=== PATIENT | female | born 1960 | race Caucasian/White ===

== ENCOUNTER 2018-01-29 20:20 | Emergency (ER) | payer SELFPAY ==
[~2018-01-29] VITALS: Ht 149.9 cm; Wt 72.6 kg
[2018-01-29 20:24] VITALS: BP 136/74
--- NOTE | 2018-01-29 20:28 | NUR ---
PT AMBULATED TO BED 5 WITH VSS. Addendum: 01/29/18 at 2030 by MEDJ PT AMBULATED TO BED 5 WITH VSS.
--- NOTE | 2018-01-29 20:30 | NUR ---
PT PRESENTED ER WITH C/O PAIN TO THE EARS BILATERAL AND SORE THRAOT X 1 WEEK. PT STATES THAT SHE HAS A PRODUCTIVE COUGH AND A SAMPSON FROM COUGHING. PAIN LEVEL IS 9/10 AT THIS TIME . PT IS A/O X4. PT STATES SHE HAS ALLERGIES TO PENICILLIN AND NO MEDICAL HX. PT HAS BEEN TAKING ADVIL AND NYQUIL FOR PAIN AND RELIEVE. PT HAS HAD NO RELIEF FROM THE OTC MEDICATIONS. DENIES N/V/D; SKIN IS PINK/WARM/DRY; EVEN AND STEADY GAIT; LUNGS CLEAR BL; HR EVEN AND REGULAR; PT DENIES ANY FEVER, CP, SOB, OR COUGH AT THIS TIME; VSS; PATIENT POSITIONED FOR COMFORT; HOB ELEVATED; BEDRAILS UP X2; BED DOWN. ER MD MADE AWARE OF PT STATUS.
--- NOTE | 2018-01-29 20:39 | NUR ---
PT REPORT TO HENRI GOLDBERG
[2018-01-29] MEDS ORDERED: IBUPROFEN 400 MG TAB PO ONE (21:15)
[2018-01-30 00:30] VITALS: BP 130/71
--- NOTE | 2018-01-30 00:30 | NUR ---
Patient discharged with v/s stable. Written and verbal after care instructions given and explained. Patient alert, oriented and verbalized understanding of instructions. Ambulatory with steady gait. All questions addressed prior to discharge. ID band removed. Patient advised to follow up with PMD. Rx of IBUPROFEN, PREDNISONE, AND ZITHROMAX given. Patient educated on indication of medication including possible reaction and side effects. Opportunity to ask questions provided and answered.
== END 2018-01-30 00:30 | disposition home or self-care (01) ==
LOC: MED 20:20
DX: J02.8 Acute pharyngitis due to other specified organisms (principal); B97.89 Other viral agents as the cause of diseases classified elsewhere; Z88.0 Allergy status to penicillin
CPT/HCPCS: 87081; 99284

== ENCOUNTER 2018-09-02 21:20 | Emergency (ER) | payer OTHER ==
[~2018-09-02] VITALS: Ht 160 cm; Wt 87.1 kg
[2018-09-02 21:25] VITALS: BP 171/104
--- NOTE | 2018-09-02 21:52 | NUR ---
PT WAS TAKEN TO BED 05 BY WHEELCHAIR.
[2018-09-02] MEDS ORDERED: LORazepam 2 MG/ML VIAL IVP ONE (22:05)
[2018-09-02] MEDS ORDERED: NACL 0.9% 1,000 ML IV ONE (22:05)
[2018-09-02] MEDS ORDERED: diphenhydrAMINE 50 MG/ML VIAL IVP ONE (22:05)
--- NOTE | 2018-09-02 22:05 | NUR ---
EKG PERFORMED AT BEDSIDE
--- NOTE | 2018-09-02 22:06 | NUR ---
58 Y/O BIB FAMILY WITH C/O DIZZNESS X1 HOUR PRIOR TO ARRIVAL. +NAUSEA/ VOMITTING. PT HYPERTENSIVE AND TACHYCARDIC. EXPERIENCING DRY MOUTH. DENIES CHANGES IN VISION. PER PT "TOLD I HAD HIGH BLOOD PRESSURE A LONG TIME AGO. BUT I DONT TAKE ANY MEDICINE." FAMILY AT BEDSIDE. ERMD MADE AWARE. WILL CONTINUE TO MONITOR.
[2018-09-02] MEDS ORDERED: ONDANSETRON 4 MG/2 ML VIAL IVP ONE (22:35)
--- NOTE | 2018-09-02 23:00 | NUR ---
PT AWAKE. VSS. FAMILY AT BEDSIDE. PT STILL C/O SOME DIZZINESS. DR. BAL AWARE.
[2018-09-03 00:50] VITALS: BP 103/56
--- NOTE | 2018-09-03 00:50 | NUR ---
Patient discharged with v/s stable. Written and verbal after care instructions given and explained. Patient alert, oriented and verbalized understanding of instructions. Wheel Chair Assisted with by caregiver. All questions addressed prior to discharge. ID band removed. Patient advised to follow up with PMD. Rx of Antivert and benadryl given. Patient educated on indication of medication including possible reaction and side effects. Opportunity to ask questions provided and answered.
== END 2018-09-03 00:50 | disposition home or self-care (01) ==
LOC: MED 21:20
DX: R42 Dizziness and giddiness (principal); B34.9 Viral infection, unspecified; Z88.0 Allergy status to penicillin
CPT/HCPCS: 81002; 93005; 96361; 96374; 96375; 99283; J1200; J2060; J2405; J7030

== ENCOUNTER 2018-10-11 16:00 | Emergency (ER) | payer OTHER ==
[~2018-10-11] VITALS: Ht 152.4 cm; Wt 86.2 kg
[2018-10-11 16:00] VITALS: BP 140/81
--- NOTE | 2018-10-11 16:02 | NUR ---
PT TAKEN IN WHEELCHAIR TO ER BED 03
--- NOTE | 2018-10-11 16:15 | NUR ---
PT PRESENTS TO ER WITH C/O RT LEG PAIN. PT DENIES INJURY/TRAUMA. PERIPHERAL PULSES PRESENT; CAP REFILL <3 SECS. SLIGHT SWELLING NOTED TO RT KNEE. PT VERBALIZED BEING UNABLE TO BEAR WEIGHT TO AFFECTED EXTREMITY. STATES PAIN IS 10/10 AT THIS TIME. DENIES PREVIOUS MEDICAL HX. VSS. ASSISTED TO GOWN; CONNECTED TO MONITOR. BED LOCKED AND IN LOWEST POSITION. ERMD TO EVALUATE PT.
[2018-10-11] MEDS ORDERED: KETOROLAC 60 MG/2 ML VIAL IM ONE (16:55)
[2018-10-11] MEDS ORDERED: DEXAMETHASONE 10 MG/ML VIAL IM ONE (16:55)
[2018-10-11] MEDS ORDERED: MORPHINE SULFATE 4 MG/ML SYR IM ONE (16:55)
[2018-10-11 18:33] VITALS: BP 132/64
--- NOTE | 2018-10-11 18:33 | NUR ---
Patient discharged with v/s stable. Written and verbal after care instructions given and explained. Patient alert, oriented and verbalized understanding of instructions. Wheel Chair Assisted to car. All questions addressed prior to discharge. ID band removed. Patient advised to follow up with PMD. Rx of voltaren tab given. Patient educated on indication of medication including possible reaction and side effects. Opportunity to ask questions provided and answered.
== END 2018-10-11 18:33 | disposition home or self-care (01) ==
LOC: MED 16:00
DX: M25.551 Pain in right hip (principal); M25.561 Pain in right knee; M25.571 Pain in right ankle and joints of right foot; Z88.0 Allergy status to penicillin
CPT/HCPCS: 73552; 73590; 96372; 99283; J1100; J1885; J2270; Q0092

== ENCOUNTER 2019-05-12 00:31 | Emergency (ER) | payer OTHER ==
[~2019-05-12] VITALS: Ht 147.3 cm; Wt 86.2 kg
[2019-05-12 00:50] VITALS: BP 122/90
[2019-05-12] MEDS ORDERED: ACETAMINOPHEN EXTRA STRENGTH 500 MG TAB PO ONE (01:00)
[2019-05-12] MEDS ORDERED: IBUPROFEN 600 MG TAB PO ONE (01:00)
--- NOTE | 2019-05-12 01:15 | NUR ---
PT C/O FLU LIKE SYMPTOMS X1 WEEK. PT STATES CHEST MUSCLES AND ABDOMEN HURT FROM COUGHING. PT COUGHING UP CLEAR FLEGM. PT STATES TAKING TYLENOL AND MOTRIN BUT STILL HAVING FEVERS. PT EDUCATED ON NOT USING BLANKETS WHEN HAVING A FEVER. DENIES N/V/D; SKIN IS PINK/WARM/DRY; AAOX4 WITH EVEN AND STEADY GAIT; LUNGS CLEAR BL; HR EVEN AND REGULAR; PATIENT STATES PAIN OF 9/10 AT THIS TIME; VSS; PATIENT POSITIONED FOR COMFORT; HOB ELEVATED; BEDRAILS UP X1; BED DOWN. ER MD MADE AWARE OF PT STATUS.
--- NOTE | 2019-05-12 03:10 | NUR ---
NO CHANGES FROM PREVIOUS ASSESSMENT. WAITING FOR X-RAY CHEST. WILL CONTINUE TO MONITOR.
--- NOTE | 2019-05-12 03:45 | NUR ---
Patient discharged with v/s stable. Written and verbal after care instructions given and explained. Patient alert, oriented and verbalized understanding of instructions. Ambulatory with steady gait. All questions addressed prior to discharge. ID band removed. Patient advised to follow up with PMD. Rx of PROMETHAZINE, LASIX AND POTASSIUM given. Patient educated on indication of medication including possible reaction and side effects. Opportunity to ask questions provided and answered.
[2019-05-12 04:07] VITALS: BP 136/85
== END 2019-05-12 04:07 | disposition home or self-care (01) ==
LOC: MED 00:31
DX: J06.9 Acute upper respiratory infection, unspecified (principal); R09.89 Other specified symptoms and signs involving the circulatory and respiratory systems; R03.0 Elevated blood-pressure reading, without diagnosis of hypertension; Z88.0 Allergy status to penicillin
CPT/HCPCS: 71045; 81002; 99283; Q0092

== ENCOUNTER 2020-08-10 08:12 | Emergency (ER) | payer OTHER ==
[~2020-08-10] VITALS: Ht 157.5 cm; Wt 74.8 kg
[2020-08-10 08:17] VITALS: BP 104/68
--- NOTE | 2020-08-10 08:24 | NUR ---
60 YEAR OLD FEMALE COMPLAINS OF PAIN TO LOWER EXTREMITIES THAT HAVE GOTTEN WORSE THE PAST COUPLE OF DAYS. PT STATES THE MEDICATION SHE TAKES ORDERED BY HER PCP DOES NOT ALLEVIATE THE PAIN. PT AOX4, BREATHING EVEN AND UNLABORED, SKIN WARM AND DRY. BED IN LOWEST POSITION, LOCKED, BED RAIL UPX1. PMH - DENIES ALLERGIES - PCN
--- NOTE | 2020-08-10 08:25 | NUR ---
PT TAKEN TO BED 5
--- NOTE | 2020-08-10 08:59 | NUR ---
Dr. Pacheco examining patient.
[2020-08-10] MEDS ORDERED: KETOROLAC 30 MG/ML VIAL IM ONE (09:10)
--- NOTE | 2020-08-10 09:22 | NUR ---
X-Ray at bedside.
--- NOTE | 2020-08-10 09:24 | NUR ---
[facility]CO SWAB SENT TO LAB
[2020-08-10] MEDS ORDERED: ACET-10509 PO (10:30)
[2020-08-10 10:49] VITALS: BP 104/68
--- NOTE | 2020-08-10 10:50 | NUR ---
Patient discharged with v/s stable. Written and verbal after care instructions given and explained. Patient alert, oriented and verbalized understanding of instructions. Ambulatory with steady gait. All questions addressed prior to discharge. ID band removed. Patient advised to follow up with PMD. Rx of TYLENOL EXTRA STRENGTH given. Patient educated on indication of medication including possible reaction and side effects. Opportunity to ask questions provided and answered.
== END 2020-08-10 10:50 | disposition home or self-care (01) ==
LOC: MED 08:12
DX: U07.1 COVID-19 (principal); Z88.0 Allergy status to penicillin
CPT/HCPCS: 71045; 87426; 96372; 99284; J1885

== ENCOUNTER 2020-08-14 22:55 | Inpatient (IN) | payer OTHER, SELFPAY ==
[~2020-08-14] VITALS: Ht 157.5 cm; Wt 82.1 kg
[~2020-08-14 22:55] MED LIST: ACET-10509 PO
[2020-08-14 23:25] VITALS: BP 128/88
--- NOTE | 2020-08-14 23:28 | NUR ---
SENT TO HER [facility], AND TO CALL FOR BED.
[2020-08-14] MEDS ORDERED: ACETAMINOPHEN EXTRA STRENGTH 500 MG TAB PO ONE (23:55)
--- NOTE | 2020-08-14 23:57 | NUR ---
AMBULATED TO ER BED 10
--- NOTE | 2020-08-15 00:52 | NUR ---
received pt from [facility] and placed to bed 10. pt currently a/o x 4 gcs 15. ambulatory with steady gait. able to move all extremities freely. placed in bed for comfort sitting in high fowlers position. 60 year old female coming from home with hx arthritis coming in for c/o dizziness, headache, and uncontrolled fever since monday. pt was tested for covid here at [facility] and tested positive for covid on monday. ever since then pt states that temp has been climbingup to as high as 104.8F and 1g of tylenol would only decrease temp to 100.1. currently pt denies any sob. has productive cough.
--- NOTE | 2020-08-15 01:50 | NUR ---
Dr. Newsome with pt for MSE
--- NOTE | 2020-08-15 02:00 | NUR ---
placed in a gown and in cardiac monitoring. shows sinus tach.
[2020-08-15] MEDS ORDERED: NACL 0.9% 1,000 ML IV ONE ×2 (02:05→03:15)
[2020-08-15] MEDS ORDERED: AZITHROMYCIN 500 MG in DEXTROSE 5% 250 ML IV ONE (02:35)
[2020-08-15 02:36] LABS: HEMATOCRIT 36.4 % (36-48); HEMOGLOBIN 12.4 g/dL (12.0-16.0); MEAN CORPUSCULAR HEMOGLOBIN 30 pg (27-31); MEAN CORPUSCULAR HGB CONC 34 g/dL (33-37); MEAN CORPUSCULAR VOLUME 88.3 fL (80-94); PLATELET COUNT (AUTO) 112 K/uL (140-450); RED BLOOD CELL COUNT(AUTO) 4.12 MIL/uL (4.20-5.40); RED CELL DISTRIBUTION WIDTH 13.4 % (11.6-13.7); WHITE BLOOD COUNT (AUTO) 9.2 K/uL (4.8-10.8)
[2020-08-15] MEDS ORDERED: cefTRIAXone 1,000 MG VIAL ONE (02:44)
[2020-08-15] MEDS ORDERED: AZITHROMYCIN 500 MG INJ VIAL IV ONE (02:44)
[2020-08-15 02:49] LABS: ALBUMIN 2.9 g/dL (3.4-5.0); ANION GAP 12.3 (8-16); CARBON DIOXIDE 23.4 mmol/L (21-32); CREATININE 0.8 mg/dL (0.6-1.3); POTASSIUM 3.7 mmol/L (3.5-5.1); TOTAL BILIRUBIN 0.5 mg/dL (0.0-1.0)
[2020-08-15 02:51] LABS: LYMPHOCYTES % (MANUAL) 5 % (20-46); MONOCYTES % (MANUAL) 1 % (5-12)
--- NOTE | 2020-08-15 03:00 | NUR ---
blood cultures collected pre-abx therapy and sent to lab.
[2020-08-15] MEDS ORDERED: DEXAMETHASONE 10 MG/ML VIAL IVP ONE (03:05)
--- NOTE | 2020-08-15 03:06 | NUR ---
Juliano EMT at bedside for EKG.
[2020-08-15] MEDS ORDERED: ACETAMINOPHEN 325 MG TAB PO ONE (03:15)
--- NOTE | 2020-08-15 03:16 | NUR ---
covid swab collected and sent to lab.
[2020-08-15 03:38] LABS: D-DIMER 596 ng/ml (0-400)
--- NOTE | 2020-08-15 03:55 | NUR ---
provided pt with food per request.
[2020-08-15] MEDS ORDERED: ACETAMINOPHEN EXTRA STRENGTH 500 MG TAB PO PRN (04:30)
[2020-08-15] MEDS ORDERED: ONDANSETRON 4 MG/2 ML VIAL IM SCH (04:30)
--- NOTE | 2020-08-15 06:40 | NUR ---
PATIENT HAS ORAL TEMP OF 101.4. CALLED AFTER HOURS PHARMACY TO VERIFY PRN MEDICATIONS. PER PHARMACIST UNABLE TO VERIFY MEDICATIONS AT THIS TIME. TYLENOL 650MG GIVEN PO. PATIENT REMAINS ON CARIDAC MONITOR VSS. BED IS LOCKED AND IN LOWEST POSITION.
[2020-08-15] MEDS ORDERED: ACETAMINOPHEN 325 MG TAB ONE (06:46)
--- NOTE | 2020-08-15 07:19 | NUR ---
REPORT GIVEN TO TREVOR GOLDBERG, TRANSFER OF CARE.
--- NOTE | 2020-08-15 07:33 | NUR ---
PATIENT RESTING, PLACED IN A POSITION OF COMFORT ON BEDSIDE ACTIMIZE ARCHITECT.
--- NOTE | 2020-08-15 07:53 | NUR ---
Rechecked oral temp, 99.8
--- NOTE | 2020-08-15 08:06 | NUR ---
RECEIVED REPORT FROM ER NURSE TREVOR PATIENT IS AAOX4 THAI SPEAKING ONLY ON REGULAR DIET, SKIN INTACT, AMBULATORY AND ON ROOM AIR.IV INTACT ON RIGHT FA, NO IV FLUIDS RUNNING, ROCEPHIN AND SODUIM CHLORIDE BOLUS GIVEN , TEMP AT 00.8.
--- NOTE | 2020-08-15 08:11 | NUR ---
Patient will be admitted to care of Dr. Marvin. Admited to TELE. Will go to room 114. Belongings list completed. Report to Jessy GOLDBERG.
--- NOTE | 2020-08-15 08:16 | NUR ---
PATIENT HAS BEEN SCREENED AND CATEGORIZED MODERATE NUTRITION RISK. PATIENT WILL BE SEEN WITHIN 3-5 DAYS OF ADMISSION. 08/17/20 08/19/[address]
[2020-08-15 08:22] VITALS: BP 100/50
--- NOTE | 2020-08-15 08:22 | NUR ---
PATIENT BROUGHT TO THE UNIT VIA GURNEY ASSISTED TO BED, ORIENTED TO ROOM CHECK VITAL SIGNS BP 100/50 DE 77 RR: 18 TEMP 98.1 OXYGEN SATURATION 92% AT 2LPM OXYGEN NC. SAFETY MEASURES IN PLACE AND CALL LIGHT WITHIN REACH. WILL CONTINUE TO MONITOR.
[2020-08-15] MEDS ORDERED: ACETAMINOPHEN 325 MG TAB PO PRN (08:45)
[2020-08-15] MEDS ORDERED: remdesivir COMMUNICATION ORDER 1 EA MISC MC SCH (09:00)
[2020-08-15] MEDS ORDERED: AZITHROMYCIN 250 MG TAB PO SCH ×2 (09:00)
[2020-08-15] MEDS: APIXABAN 2.5 MG TAB PO SCH ×2 (09:18→20:21)
--- NOTE | 2020-08-15 09:18 | NUR ---
MEDICATION DUE GIVEN PT IS COUGHING NO DISTRESS NOTED.
--- NOTE | 2020-08-15 09:30 | NUR ---
MRSA NARES DONE AND SENT TO LAB.
[2020-08-15] MEDS ORDERED: remdesivir CLINICAL MONITORING 1 EA MISC MC PRN (10:05)
[2020-08-15] MEDS ORDERED: REMDESIVIR. 200 MG in NACL 0.9% 100 ML IV SCH (11:00)
[2020-08-15 12:00] VITALS: BP 116/65
[2020-08-15] MEDS ORDERED: IBUPROFEN 400 MG TAB PO SCH (12:00)
--- NOTE | 2020-08-15 12:00 | NUR ---
MEDICATION DUE GIVEN PAT COMPLAINS OF MILD HEADACHE. PAIN MEDICATION GIVEN.
[2020-08-15] MEDS: DEXAMETHASONE 10 MG/ML VIAL IVP SCH (12:03)
[2020-08-15 15:38] LABS: APPEARANCE,URINE CLEAR (CLEAR); BILIRUBIN,URINE NEGATIVE (NEGATIVE); BLOOD, URINE NEGATIVE (NEGATIVE); COLOR,URINE YELLOW (YELLOW); LEUKOCYTE ESTERASE ,URINE NEGATIVE (NEGATIVE); NITRITE, URINE NEGATIVE (NEGATIVE); UGLUCOSE NEGATIVE (NEGATIVE)
[2020-08-15 16:00] VITALS: BP 106/59
[2020-08-15] MEDS: IBUPROFEN 400 MG TAB PO SCH (16:34)
--- NOTE | 2020-08-15 16:40 | NUR ---
MEDICATION DUE GIVEN PATIENT IS RESTING NO COMPLAINS OF PAIN AND HEADACHE.
--- NOTE | 2020-08-15 17:42 | NUR ---
MADE ROUNDS PT IS RESTING NO DISTRESS NOTED ON 2LPM OXYGEN SATURATION AT 92%.
--- NOTE | 2020-08-15 19:11 | NUR ---
RECEIVED PATIENT FROM AM SHIFT NURSE FOR CONTINUITY OF CARE. ALERT AND ABLE TO MAKE NEEDS KNOWN. RESPIRATIONS EVEN, UNLABORED. SLIGHTLY TACHYPNEIC AND LABORED DURING ACTIVITY. CONTINUES ON O2 2L VIA NC, O2SAT 90%. NO S/S RESPIRATORY DISTRESS. S1/S2 AUSCULTATED. TELE MONITORING. SKIN WARM, DRY. SALINE LOCK TO RIGHT FOREARM 18G PATENT/INTACT. NO C/O PAIN. NO S/S ACUTE DISTRESS. ABDOMEN SOFT, NONTENDER, NONDISTENDED. BOWEL SOUNDS ACTIVE X4 QUADRANTS. PATIENT IS CONTINENT OF B/B. PLAN OF CARE DISCUSSED. CALL LIGHT WITHIN REACH AT ALL TIMES. ISOLATION PRECAUTIONS OBSERVED.
--- NOTE | 2020-08-15 19:11 | NUR ---
ENDORSED TO NIGHT NURSE FOR CONTINUITY OF CARE. PT IS STABLE.
[2020-08-15 20:00] VITALS: BP 105/61
--- NOTE | 2020-08-15 21:00 | NUR ---
DUE MEDS GIVEN. PATIENT IS RESTING COMFORTABLY IN BED. NO S/S RESPIRATORY DISTRESS. NO S/S ACUTE DISTRESS. NO C/O PAIN. CALL LIGHT WITHIN REACH AT ALL TIMES. ISOLATION PRECAUTIONS OBSERVED.
--- NOTE | 2020-08-15 23:00 | NUR ---
PATIENT IS ASLEEP. NO S/S RESPIRATORY DISTRESS. NO S/S ACUTE DISTRESS. CALL LIGHT WITHIN REACH AT ALL TIMES. ISOLATION PRECAUTIONS OBSERVED.
[2020-08-16] VITALS: BP 122/66
--- NOTE | 2020-08-16 01:30 | NUR ---
MADE ROUNDS. PATIENT IS ASLEEP. NO S/S ACUTE DISTRESS. CALL LIGHT WITHIN REACH. ISOLATION PRECAUTIONS OBSERVED.
--- NOTE | 2020-08-16 01:39 | NUR ---
PT RESTING/SLEEPING COMFORTABLY IN BED ON 2LNC NO DISTRESS NOTED SPO2 91% WILL CONTINUE TO MONITOR
--- NOTE | 2020-08-16 03:30 | NUR ---
PATIENT IS RESTING COMFORTABLY IN BED. O2 SAT 88%. INCREASED O2 TO 4L VIA NC. O2SAT NOW 90%.
[2020-08-16 04:00] VITALS: BP 144/75
--- NOTE | 2020-08-16 05:00 | NUR ---
PATIENT ENCOURAGED TO PRONE TO BETTER FACILITATE GAS EXCHANGE. CONTINUES ON O2 4L VIA NC. NO S/S RESPIRATORY DISTRESS. O2 SAT 92%. CALL LIGHT WITHIN REACH. ISOLATION PRECAUTIONS OBSERVED.
--- NOTE | 2020-08-16 05:02 | NUR ---
PT SLEEPING IN PRONE POSITION ON 4LNC W/ NO DISTRESS NOTED AT THIS TIME CURRENT SPO2 92% WILL CONTINUE TO MONITOR
[2020-08-16 06:54] LABS: HEMATOCRIT 36.3 % (36-48); HEMOGLOBIN 12.2 g/dL (12.0-16.0); MEAN CORPUSCULAR HEMOGLOBIN 30 pg (27-31); MEAN CORPUSCULAR HGB CONC 34 g/dL (33-37); MEAN CORPUSCULAR VOLUME 89.4 fL (80-94); PLATELET COUNT (AUTO) 152 K/uL (140-450); RED BLOOD CELL COUNT(AUTO) 4.06 MIL/uL (4.20-5.40); RED CELL DISTRIBUTION WIDTH 13.5 % (11.6-13.7); WHITE BLOOD COUNT (AUTO) 14.5 K/uL (4.8-10.8)
[2020-08-16 07:05] LABS: ALBUMIN 2.6 g/dL (3.4-5.0); ANION GAP 15.4 (8-16); CREATININE 0.7 mg/dL (0.6-1.3); POTASSIUM 3.4 mmol/L (3.5-5.1); TOTAL BILIRUBIN 0.3 mg/dL (0.0-1.0)
--- NOTE | 2020-08-16 07:18 | NUR ---
RECEIVED PT FROM DESKTOP SUPPORT MANAGER NURSE, CORWIN, PT IS AWAKE AND IS LYING PRONE ON THE BED SATURATION IS AT 89%, IV LINE NOTED ON THE RFA G. 18 ON SALINE LOCK, PT IS ON 6L O2 NC, SAFETY PRECAUTION IN PLACE, NO SIGN OF DISTRESS NOTED AND WILL CONTINUE TO BE MONITORED.
[2020-08-16 07:37] LABS: BASOPHILS % (MANUAL) 0 % (0-2); EOSINOPHILS % (MANUAL) 0 % (0-4); LYMPHOCYTES % (MANUAL) 6 % (20-46); MONOCYTES % (MANUAL) 3 % (5-12)
[2020-08-16 07:38] LABS: PROTHROMBIN TIME 11.2 secs (10.8-13.4)
[2020-08-16 08:00] VITALS: BP 126/64
[2020-08-16] MEDS: PANTOPRAZOLE 40 MG TABEC PO SCH (08:13)
--- NOTE | 2020-08-16 08:15 | NUR ---
RT, CELSO CAME TO THE PT'S ROOM AND CHANGE THE PT'S O2 TO A HUMIDIFIED OXYGEN AT 8L NASAL CANNULA NOW, PT IS SATURATING AT 96% NOW, SEATED UPRIGHT AND IS CALM. NO SIGN OF DISTRESS NOTED. WILL CONTINUE TO MONITOR,PT.
[2020-08-16] MEDS: IBUPROFEN 400 MG TAB PO SCH ×3 (08:27→16:32)
[2020-08-16] MEDS: APIXABAN 2.5 MG TAB PO SCH ×2 (08:27→20:04)
--- NOTE | 2020-08-16 08:27 | NUR ---
PT WAS GIVEN THE SCHEDULED AM MEDICATION VIA ORAL, TOLERATED AND NO SIGN OF DIFFICULTY SWALLOWING NOTED, ROOM WAS FREED FROM CLUTTER, SPOKE TO PT'S DAUGHTER, LINH AND TOLD ABOUT THE PLAN OF CARE, PT WAS SERVED BREAKFAST AND O2 SATURATION IS AT 90%. NO SIGN OF DISTRESS NOTED AND WILL CONTINUE TO MONITOR PT.
[2020-08-16] MEDS ORDERED: POTASSIUM CHLORIDE 10 MEQ TABER PO SCH (09:30)
[2020-08-16] MEDS: DEXAMETHASONE 10 MG/ML VIAL IVP SCH (11:55)
[2020-08-16] MEDS: REMDESIVIR. 100 MG in NACL 0.9% 100 ML IV SCH (11:56)
--- NOTE | 2020-08-16 11:56 | NUR ---
PT WAS GIVEN THE SCHEDULED MEDICATIONS VIA IVPB AND ORAL, TOLERATED AND WILL CONTINUE TO MONITOR PT.
[2020-08-16 12:00] VITALS: BP 107/65
--- NOTE | 2020-08-16 13:20 | NUR ---
PT IS RESTING AND SATURATING AT 95%
[2020-08-16 16:00] VITALS: BP 103/69
--- NOTE | 2020-08-16 16:32 | NUR ---
PT WAS GIVEN THE SCHEDULED AM MEDICATION, ASSISTED WITH NEEDS, PT IS SATURATING AT 96% ON O2 8L ON HUMIDIFIED NASAL CANNULA
--- NOTE | 2020-08-16 19:19 | NUR ---
ENDORSED PT TO WATER REGISTRAR NURSESILVINO FOR CONTINUITY OF CARE
--- NOTE | 2020-08-16 19:20 | NUR ---
RECEIVED REPORT FROM DAY YUSUF HALLMAN. PT AOX4 ON 8L HUMIDIFIED N/C, O2 SAT 95%. NO S/S RESPIRATORY DISTRESS. NO C/O PAIN AT THIS TIME. IV SITE R HAND 20G PATENT INTACT, S.L. SAFETY MEASURES IN PLACE. CALL LIGHT WITHIN REACH. WILL CONTINUE TO MONITOR
[2020-08-16] MEDS ORDERED: IBUPROFEN 400 MG TAB PO PRN (19:30)
--- NOTE | 2020-08-16 19:30 | NUR ---
PT ON 8LNC SPO2 95% 75HR PT DENIES SOB AT THIS TIME W/ NO DISTRESS AT THIS TIME. PT SITTING UP IN BED SPEAKING W/ FAMILY ON PHONE. WILL CONTINUE TO MONITOR
[2020-08-16 20:00] VITALS: BP 111/64
--- NOTE | 2020-08-16 20:10 | NUR ---
ADMINISTERED SCHEDULED MEDICATION. EDUCATION PROVIDED. 8L N/C IN PLACE, O2 SAT 97%. DENIES PAIN, DENIES SOB, DENIES DISCOMFORT. NO DISTRESS NOTED. BED IN LOW POSITION. CALL LIGHT WITHIN REACH. WILL CONTINUE TO MONITOR
--- NOTE | 2020-08-16 22:15 | NUR ---
PATIENT ASLEEP IN BED. RESPIRATIONS EVEN UNLABORED. 8L N/C IN PLACE, O2 SAT 94%. NO DISTRESS NOTED. CALL LIGHT WITHIN REACH. WILL CONTINUE TO MONITOR
--- NOTE | 2020-08-16 22:39 | NUR ---
PT SLEEPING COMFORTABLY AT THIS TIME W/ NO DISTRESS CURRENT SPO2 96% WILL CONTINUE TO MONITOR
[2020-08-17] VITALS: BP 121/70
--- NOTE | 2020-08-17 00:15 | NUR ---
PATIENT ASLEEP IN BED. RESPIRATIONS EVEN UNLABORED. 8L N/C IN PLACE, O2 SAT 96%. NO DISTRESS NOTED. CALL LIGHT WITHIN REACH. WILL CONTINUE TO MONITOR
--- NOTE | 2020-08-17 02:01 | NUR ---
PATIENT SLEEPING IN BED COMFORTABLY. 8L N/C IN PLACE, O2 SAT 93%. NO S/S RESPIRATORY DISTRESS. CALL LIGHT WITHIN REACH. WILL CONTINUE TO MONITOR
[2020-08-17 04:00] VITALS: BP 111/62
--- NOTE | 2020-08-17 04:02 | NUR ---
PATIENT SLEEPING IN BED. 8L N/C IN PLACE, O2 SAT 90%. RESPIRATIONS EVEN UNLABORED. NO S/S RESPIRATORY DISTRESS. CALL LIGHT WITHIN REACH. WILL CONTINUE TO MONITOR
--- NOTE | 2020-08-17 06:04 | NUR ---
PATIENT SLEEPING IN BED. 8L N/C IN PLACE, O2 SAT 93%. RESPIRATIONS EVEN UNLABORED. NO S/S RESPIRATORY DISTRESS. CALL LIGHT WITHIN REACH. WILL CONTINUE TO MONITOR
[2020-08-17 06:37] LABS: ALBUMIN 2.4 g/dL (3.4-5.0); ANION GAP 12.8 (8-16); CARBON DIOXIDE 26.3 mmol/L (21-32); CREATININE 0.8 mg/dL (0.6-1.3); POTASSIUM 4.1 mmol/L (3.5-5.1); TOTAL BILIRUBIN 0.3 mg/dL (0.0-1.0)
[2020-08-17 06:40] LABS: BASOPHILS % (AUTO) 0.1 % (0.0-2.0); HEMATOCRIT 35.8 % (36-48); HEMOGLOBIN 11.9 g/dL (12.0-16.0); LYMPHOCYTES # (AUTO) 0.5 K/uL (2.5-16.5); LYMPHOCYTES % (AUTO) 3.2 % (20.5-51.1); MEAN CORPUSCULAR HEMOGLOBIN 30 pg (27-31); MEAN CORPUSCULAR HGB CONC 33 g/dL (33-37); MEAN CORPUSCULAR VOLUME 89.7 fL (80-94); MONOCYTES # (AUTO) 0.8 K/uL (0.8-1.0); MONOCYTES % (AUTO) 5.4 % (1.7-9.3); NEUTROPHILS % (AUTO) 91.3 % (42.2-75.2); PLATELET COUNT (AUTO) 179 K/uL (140-450); RED CELL DISTRIBUTION WIDTH 13.6 % (11.6-13.7); WHITE BLOOD COUNT (AUTO) 14.2 K/uL (4.8-10.8)
[2020-08-17] MEDS ORDERED: IBUPROFEN 400 MG TAB PO PRN (07:22)
--- NOTE | 2020-08-17 07:24 | NUR ---
ENDORSED PATIENT TO DAY RN FOR CONTINUITY OF CARE. PATIENT IS IN STABLE CONDITION
--- NOTE | 2020-08-17 07:25 | NUR ---
RECEIVED REPORT FROM SENIOR LEAD PROJECT MANAGER RN FOR CONTINUITY OF CARE. PATIENT RESTING IN BED IN SEMI RESENDEZ'S POSITION. O2 SAT 84-86% ON 8L OXYGEN VIA NC WITH HUMIDIFIER, HOWEVER, NO SIGNS OF LABORED BREATHING NOTED. PER SENIOR LEAD PROJECT MANAGER RN, PATIENT DESAT WHEN SHE WALK TO THE RESTROOM, AND TAKES ABOUT 20-30 MINS GO BACK TO 90%. BEDSIDE COMMODE AT BEDSIDE, HOWEVER, PATIENT NON COMPLIANCE, INSIST TO WALK TO THE RESTROOM, PER SENIOR LEAD PROJECT MANAGER RN. WILL INFORM RT TO CHECK THE PATIENT. IV SITE TO RIGHT HAND 20G SALINE LOCK. SKIN INTACT. SAFETY MEASURES IN PLACE, WILL CONTINUE TO MONITOR.
--- NOTE | 2020-08-17 07:45 | NUR ---
PATIENT ON NON REBREATHER, O2 SAT WENT UP TO 92-94%, PER RT.
[2020-08-17 08:00] VITALS: BP 111/64
[2020-08-17] MEDS: PANTOPRAZOLE 40 MG TABEC PO SCH (09:38)
[2020-08-17] MEDS: APIXABAN 2.5 MG TAB PO SCH ×2 (09:38→21:20)
--- NOTE | 2020-08-17 09:38 | NUR ---
SCHEDULED MEDICATIONS GIVEN. ENCOURAGED PATIENT TO REST IN PRONE POSITION. O2 SAT 89-90% WITH 8L NRB. PATIENT HAS OCCASIONAL PRODUCTIVE COUGH. ENCOURAGED PATIENT TO TAKE SOME DEEP BREATHE IF TOLERATED. VERBALIZED UNDERSTANDING WILL CONTINUE TO MONITOR.
[2020-08-17] MEDS: DEXAMETHASONE 10 MG/ML VIAL IVP SCH (11:05)
[2020-08-17] MEDS: REMDESIVIR. 100 MG in NACL 0.9% 100 ML IV SCH (11:05)
[2020-08-17 12:00] VITALS: BP 123/73
--- NOTE | 2020-08-17 14:28 | NUR ---
IV ON THE RIGHT HAND DRESSING NON INTACT. Addendum: 08/17/20 at 1430 by Brent Cruz RN REMOVED IV ON THE HAND HAND PER PATIENT'S REQUESTS. STARTED NEW IV ON THE LEFT FOREARM 22G WITH FIRST ATTEMPT, WITH GOOD BLOOD RETURN AND EASILY TO FLUSH WITH NS. PATIENT TOLERATED WELL. ALL COMFORT MEASURES MET. WILL CONTINUE TO MONITOR.
[2020-08-17 16:00] VITALS: BP 122/59
--- NOTE | 2020-08-17 16:20 | NUR ---
DC PLANNIN YRS OLD FEMALE PATIENT WAS ADMITTED FROM HOME WITH A DX OF COVID, PNA, ACUTE RESP FAILURE. PT HAS NO MEDICAL HISTORY. CXR SHOWED BILATERAL PATCHY AIRSPACE CONSOLIDATION SUGGESTING MULTIFOCAL PNEUMONIA. RAPID COVID TEST POSITIVE. STARTED COVID PROTOCOL, REMDESIVIR IV. CONSULTED WITH ID. DC PLAN PER PATIENT RESPOND TO THE TREATMENT. CM TO FOLLOW Addendum: 08/19/20 at 1247 by Silvia De La O RN DC PLANNING: PT ON 15L NRB SATING SATING 91%. PULMO DR RIVERA FOLLOWING S/P REMDESIVIR FOR [address] REDDY ORDERED FOR FAMILY MEETING HOWEVER BOTH DR RIVERA AND DR REDDY SPOKE WITH PATIENT AND PT'S . CM TO FOLLOW Addendum: 08/24/20 at 0921 by Mita Valerio CM DC AUTOMOTIVE PROJECT ENGINEER: RECEIVED ORDER FOR HOME O2, FAXED TO [facility]. Addendum: 08/24/20 at 1120 by Mita Valerio CM SIN MCKEON: RECEIVED A PHONE CALL FROM [facility] [phone] THEY RECEIVED ORDER JUST PENDING AUTH FROM [facility]. Addendum: 08/24/20 at 1121 by Mita Valerio CM SIN MCKEON: HOME O2 WILL BE DELIVERED TO BEDSIDE. Addendum: 08/24/20 at 1244 by Mita Mayeda CM SIN MCKEON: HOME O2 HAS BEEN DELIVERED. FAXED ORDER FOR HOME HEALTH FOR PT TO [facility]. WILL FOLLOW UP Addendum: 08/24/20 at 1339 by Mita Valerio CM SIN MCKEON: FOLLOWED UP WITH TANIA AT [facility]. THEY ARE ABLE TO ACCEPT PATIENT. Addendum: 08/24/20 at 1346 by Mita Valerio CM SIN MCKEON: SCHEDULED PATIENT A TELEPHONE FOLLOW UP APPOINTMENT WITH PCP KELSI ZAMORA [phone]/ [phone] [address] 08/26/2020 AT 10:30 AM
--- NOTE | 2020-08-17 17:02 | NUR ---
PATIENT RESTING IN BED IN HIGH RESENDEZ'S POSITION. O2 SAT 94% WITH 8L OXYGEN VIA NON REBREATHER. ENCOURAGED PATIENT TO TAKE DEEP BREATH. NO RESPIRATORY DISTRESS NOTED AT THIS TIME. WILL CONTINUE TO MONITOR.
--- NOTE | 2020-08-17 19:19 | NUR ---
ENDORSED PATIENT TO ICE PULLER RN FOR CONTINUITY OF CARE. PATIENT IN STABLE CONDITION WITH 8L OXYGEN VIA NRB.
--- NOTE | 2020-08-17 19:30 | NUR ---
RECEIVED REPORT AT BEDSIDE FOR CONTINUITY OF CARE, PT LYING IN BED AOX4 WITH 8 LITERS VIA NON REBREATHER MASK. PT HAS BEDSIDE COMMODE AND ALL UNIVERSAL PRECAUTIONS WELL DROPLET PRECAUTIONS IN PLACE.
[2020-08-17 20:00] VITALS: BP 120/64
--- NOTE | 2020-08-17 20:00 | NUR ---
PT LYING IN BED. AOX4 SHE IS GREENLANDIC SPEAKING AND ON 8 LITERS NON REBREATHER. V/S FOLLOWS: T 97.0 P 64 R 18 B/P 120/64 02 97%. ALL DROPLET AND UNIVERSAL FALLS IN PLACE.
--- NOTE | 2020-08-17 20:05 | NUR ---
PT SLEEPING IN PRONE POSITION ON NRB W/ 0 DISTRESS NOTED WILL CONTINUE TO MONITOR
--- NOTE | 2020-08-17 20:30 | NUR ---
RECEIVED PHONE CALL FROM FAMILY MEMBER DALY CLINTON WITH COMPLAINTS THAT THE FACILITY IS NOT ANSWERING HER CALL BELLS AND DOES NOT TRANSLATE TO HER IN INDIAN. PT FAMILY MEMBER HAS COMPLAINTS THE PT SAID THAT NURSES AND BUSINESS ANALYST PROJECT MANAGER'S REFUSE TO GO IN HER ROOM TELLING HER THAT SHE HAS COVID. AND THAT PT IS UNAWARE OF WHY SHE IS HERE. FAMILY MEMBER WENT ON TO COMPLAIN THAT PT IS DIZZY WHEN TRYING TO GET UP AND GO THE BATHROOM AND THEY ARE WORRIED SHE WILL FALL AND THEY FEEL THAT THIS SHOULD NEVER HAPPEN. EXPLAINED TO FAMILY MEMBER THAT PT DOES HAS COVID AND IS ASSIGNED 1 NURSE AND BUSINESS ANALYST PROJECT MANAGER, AND THAT NOT EVERY NURSE AND BUSINESS ANALYST PROJECT MANAGER HAS THE N95 MASK ON AND THEY DO NOT WANT TO EXPOSE THEMSELVES AND OTHER PATIENT TO THE COVID. ALSO EXPLAINED THAT PT HAS A BEDSIDE COMMODE AND THAT I CAN PUT A BED ALARM ON THE BED AND ASSURED FAMILY THAT I WILL USE FAMILY ENGAGEMENT SPECIALIST PHONE TO REMIND PT TO USE THE CALL LIN AND WILL REVIEW HER CURRENT PLAN OF CARE AND THE MEDICATIONS SHE IS RECEIVING IN INDIAN SO SHE IS AWARE OF HER TREATMENT PLAN.
--- NOTE | 2020-08-17 21:00 | NUR ---
[employer] USED WITH [employer] . ASKED PT IS SHE UNDERSTANDS WHY SHE IS HERE, PT SAID SHE HAS COVID. PT WAS TOLD THROUGH [employer] THAT HER FAMILY CALLED TO COMPLAIN AND SAID THAT NON ONE IS ANSWERING HER CALL LIN AND WAS ASKED IF THIS IS TRUE OR NOT. PT SAID THEY ARE ANSWERING THE CALL LIN BUT SOMETIMES SHE HAS TO WAIT. PT REMINDED ABOUT THE USE OF THE CALL LIN AND WAS TOLD TO USE THE CALL LIN IF SHE FEELS SHE NEEDS THE COMMODE SO WE CAN STANDBY ASSIST TO COMMODE. PT REMINDED THAT HER DIZZINESS IS PART OF THE SYMPTOMS OF THE COVID. PT DIAGNOSIS AND PLAN OF CARE REVIEWED VIA [employer]. PT VERBALIZED AGREEMENT TO THE PLAN AND THAT AARON CLINTON IS ALLOWED TO RECEIVE UPDATES. DUE MEDICATION OF ELIQUIS REVIEWED PURPOSE AND SIDE EFFECTS WITH PT, PT VERBALIZED UNDERSTANDING. BED ALARM PLACED AND FREQUENT ROUNDS QWILL BE DONE, ALL PT REQUESTS ATTENDED BY STAFF AND ALL DROPLET PRECAUTIONS IN PLACE.
--- NOTE | 2020-08-17 22:00 | NUR ---
PT ASLEEP IN BED WITH 8 LITERS VIA N/C 02 IS 95%. ALL UNIVERSAL FALLS PRECAUTIONS IN PLACE WELL BED ALARM.
--- NOTE | 2020-08-17 23:00 | NUR ---
PT IN BED RESTING WITH EYES CLOSED; NO S/S OF PAIN OR DISTRESS NOTED. SHE CONTINUES ON 8 LITERS NON REBREATHER. ALL ORDERED PRECAUTIONS IN PLACE.
[2020-08-18] VITALS: BP 122/69
--- NOTE | 2020-08-18 | NUR ---
PT LYING IN BED V/S FOLLOWS: T 97.5 P 65 R 18 B/P 122/69 02 96% ON 8 LITERS NON REBREATHER. ALL ORDERED PRECAUTIONS IN PLACE.
--- NOTE | 2020-08-18 01:13 | NUR ---
PT SLEEPING COMFORTABLY ON NRB f18 W/ NO DISTRESS NOTED CURRENT SPO2 91% HR 51 WILL CONTINUE TO MONITOR
--- NOTE | 2020-08-18 02:00 | NUR ---
ROUNDS DONE, PT IN BED ASLEEP, NON REBREATHER ON AND RUNNING 02 AT 8 LITERS. 02 IS 95% ALL UNIVERSAL FALLS PRECAUTIONS IN PLACE WELL BED ALARM.
[2020-08-18 04:00] VITALS: BP 128/64
--- NOTE | 2020-08-18 04:00 | NUR ---
PT LYING IN BED RESTING BUT AROUSABLE TO NAME AND LIGHT TOUCH V/S FOLLOWS: T 97.3 P 64 R 25 B/P 128/64 02 93% ON NON REBREATHER MASK. ALL UNIVERSAL FALLS IN PLACE WELL BED ALARM AND ALL CONTACT/DROPLET PRECAUTIONS DUE TO POSITIVE COVID.
--- NOTE | 2020-08-18 05:00 | NUR ---
ALARM HEARD FROM NURSES STATION. PT FOUND STANDING BY THE COMMODE AND WAS ASSISTED TO SIT DOWN ON COMMODE. PT ASSISTED BACK TO BED WHEN FINISHED WITH THE COMMODE. ALL REQUESTED NEEDS ATTENDED AND UNIVERSAL FALLS PRECAUTIONS IN PLACE. BED ALARM ON. PT WAS ENCOURAGED IN [place] TO USE CALL LIN BEFORE GETTING OUT OF BED. PT VERBALIZED UNDERSTANDING.
--- NOTE | 2020-08-18 07:15 | NUR ---
RECEIVED PATIENT FROM NIGHT NURSE. PATIENT IN BED SLEEPING. RESP EVEN AND UNLABORED ON 8L NONREBREATHER, O2SAT 95%. NO NOTED DISTRESS. LFA 22G SL. DROPLET PRECAUTION OBSERVED. HOB ELEVATED. CALL LIGHT WITHIN REACH. WILL CONTINUE TO MONITOR. Addendum: 08/18/20 at 1452 by David Wharton RN PATIENT CURRENTLY ON 15L NONREBREATHER.
[2020-08-18 08:00] VITALS: BP 145/80
[2020-08-18] MEDS: APIXABAN 2.5 MG TAB PO SCH ×2 (09:04→20:08)
[2020-08-18] MEDS: PANTOPRAZOLE 40 MG TABEC PO SCH (09:08)
--- NOTE | 2020-08-18 09:24 | NUR ---
PATIENT SITTING UP IN BED EATING BREAKFAST. ENCOURAGED TO ALTERNATE OXYGEN AND EATING. PATIENT VERBALIZED UNDERSTANDING. RESP EVEN AND UNLABORED ON 8L NONREBREATHER, O2SAT 90%. LUNGS DIMINISHED. DENIED OF PAIN AT THIS TIME. NO NOTED EDEMA. PATIENT ABLE TO USE BEDSIDE COMMODE AND WAS ENCOURAGED TO CALL FOR ASSIST NEEDED. MORNING ROUTINE MEDICATIONS GIVEN, PATIENT TOLERATED WELL. LFA 22G INTACT AND PATENT, SL. PATIENT ABLE TO MAKE NEEDS KNOWN AND FOLLOW SIMPLE COMMANDS. BED IN LOW POSITIONS. CALL LIGHT WITHIN REACH. WILL CONTINUE TO MONITOR. Addendum: 08/18/20 at 1452 by David Wharton RN PATIENT ON 15L NONREBREATHER.
[2020-08-18 10:27] LABS: ALBUMIN 2.4 g/dL (3.4-5.0); ANION GAP 10.1 (8-16); CARBON DIOXIDE 29.4 mmol/L (21-32); CREATININE 0.6 mg/dL (0.6-1.3); POTASSIUM 3.5 mmol/L (3.5-5.1); TOTAL BILIRUBIN 0.5 mg/dL (0.0-1.0)
[2020-08-18 10:44] LABS: BASOPHILS % (AUTO) 0.2 % (0.0-2.0); HEMOGLOBIN 12.7 g/dL (12.0-16.0); LYMPHOCYTES # (AUTO) 0.7 K/uL (2.5-16.5); LYMPHOCYTES % (AUTO) 6.1 % (20.5-51.1); MEAN CORPUSCULAR HEMOGLOBIN 30 pg (27-31); MEAN CORPUSCULAR HGB CONC 34 g/dL (33-37); MEAN CORPUSCULAR VOLUME 88.9 fL (80-94); MONOCYTES # (AUTO) 0.8 K/uL (0.8-1.0); MONOCYTES % (AUTO) 6.5 % (1.7-9.3); NEUTROPHILS # (AUTO) 10.3 K/uL (1.8-7.7); NEUTROPHILS % (AUTO) 87.2 % (42.2-75.2); PLATELET COUNT (AUTO) 214 K/uL (140-450); RED BLOOD CELL COUNT(AUTO) 4.27 MIL/uL (4.20-5.40); RED CELL DISTRIBUTION WIDTH 13.5 % (11.6-13.7); WHITE BLOOD COUNT (AUTO) 11.8 K/uL (4.8-10.8)
[2020-08-18] MEDS: DEXAMETHASONE 10 MG/ML VIAL IVP SCH (11:54)
[2020-08-18] MEDS: REMDESIVIR. 100 MG in NACL 0.9% 100 ML IV SCH (11:55)
[2020-08-18 12:00] VITALS: BP 142/65
--- NOTE | 2020-08-18 12:10 | NUR ---
PATIENT ABLE TO USE THE BEDSIDE COMMODE WITH STANDBY ASSIST. O2SAT WENT TO 85% UPON AMBULATION AND 91% AT REST. PATIENT NOTED WITH SOB AND COUGH AFTER RESTING. ROUTINE MEDICATION GIVEN. PATIENT ABLE TO UNDERSTAND WHEN TO USE CALL LIGHT FOR HELP. PATIENT ENCOURAGE TO PRONE NEEDED. CALL LIGHT WITHIN REACH. WILL CONTINUE TO MONITOR.
--- NOTE | 2020-08-18 14:45 | NUR ---
PATIENT RESTING ON PRONE POSITION, O2SAT 95% ON 8L NONREBREATHER. NO NOTED DISTRESS. PATIENT ABLE TO MAKE NEEDS KNOWN. CALL LIGHT WITHIN REACH. WILL CONTINUE TO MONITOR. Addendum: 08/18/20 at 1452 by David Wharton RN PATIENT ON 15L NONREBREATHER.
--- NOTE | 2020-08-18 15:35 | NUR ---
PATIENT IN BED RESTING, AWAKE AND ALERT. RESP EVEN AND UNLABORED ON 15L NONREBREATHER, O2SAT 94%. FAMILY AT WINDOW. ALL QUESTIONS ANSWERED. PATIENT ABLE TO FOLLOW COMMAND AND MAKE NEEDS KNOWN. CALL LIGHT WITHIN REACH. WILL CONTINUE TO MONITOR.
[2020-08-18 16:00] VITALS: BP 144/70
--- NOTE | 2020-08-18 18:45 | NUR ---
PATIENT IN BED SLEEPING, CHEST NOTED RISING. RESP EVEN AND UNLABORED ON 15L NONREBREATHER, O2SAT 93%. CALL LIGHT WITHIN REACH. WILL CONTINUE TO MONITOR.
--- NOTE | 2020-08-18 19:15 | NUR ---
RECEIVED BEDSIDE REPORT FROM DAY SHIFT NURSE FOR CONTINUITY OF CARE. PT IS AWAKE AND ALERT. A&OX4, SAMI SPEAKING. RESPONDING TO QUESTIONS APPROPRIATELY. ON 15L O2 NRB WITH BREATHING UNLABORED. O2 SAT IS 90%. PT IS SITTING UP IN HIGH FOWLERS POSITION. ON TELE MONITORING. BEDSIDE COMMODE IN PLACE FOR VOIDING. SKIN IS WARM, DRY, AND INTACT. IV IS IN THE LEFT FOR 22 GAUGE SALINE LOCKED. PT IS STABLE AT THIS TIME. PLAN OF CARE DISCUSSED. DROPLET PRECAUTIONS FOR COVID POSITIVE AND UNIVERSAL PRECAUTIONS WELL.
--- NOTE | 2020-08-18 19:21 | NUR ---
ENDORSED PATIENT TO NIGHT NURSE. PATIENT IN STABLE CONDITION.
[2020-08-18 20:00] VITALS: BP 137/60
--- NOTE | 2020-08-18 20:59 | NUR ---
PT SITTING IN HIGH FOWLERS IN BED WATCHING TV ON NRB CURRENT HR65 SPO2 96%. PT DENIES SOB AT THIS TIME WILL CONTINUE TO MONITOR
--- NOTE | 2020-08-18 23:00 | NUR ---
PT IS SLEEPING IN PRONE POSITION. O2 SAT IS 94% ON 15 L O2 NRB. BREATHING IS UNLABORED. PT IS NOT COUGHING, CURRENTLY. PT IS STABLE.
--- NOTE | 2020-08-18 23:40 | NUR ---
PT SLEEPING COMFORTABLY IN PRONE POSITION ON NRB SPO2 97% HR 51 WILL CONTINUE TO MONITOR
[2020-08-19] VITALS: BP 124/65
--- NOTE | 2020-08-19 01:30 | NUR ---
PT IS UP TO THE BEDSIDE COMMODE. NO RESPIRATORY DISTRESS NOTED. PT ASSISTED BACK TO BED. ON 15L O2 NRB WITH O2 SAT AT 90%. PT IS STABLE AT THIS TIME.
--- NOTE | 2020-08-19 03:12 | NUR ---
ROUNDED ON PT. SHE IS ASLEEP. NO RESPIRATORY DISTRESS NOTED ON 15L O2 NRB. PT IS IN HIGH FOWLERS POSITION. BED IS IN THE LOWEST POSITION AND CALL LIGHT IS WITHIN REACH.
--- NOTE | 2020-08-19 03:55 | NUR ---
PT STATED SHE JUST RETURNED FROM [facility] UPON MY ARRIVAL W/ SPO2 85%. PT SPO2 SLOWLY CLIMBED TO 89/90%. WILL CONTINUE TO MONITOR
[2020-08-19 04:00] VITALS: BP 140/74
--- NOTE | 2020-08-19 05:18 | NUR ---
CALLED TO BEDSIDE PT DESAT. UPON ARRIVAL PT SPO2 87%. PT's NRB WAS CHANGED IT WAS MISSING VALVE. PT SPO2 92% UPON MY DEPARTURE WILL CONTINUE TO MONITOR
[2020-08-19 06:30] LABS: ALBUMIN 2.3 g/dL (3.4-5.0); ANION GAP 10.3 (8-16); CARBON DIOXIDE 29.2 mmol/L (21-32); CREATININE 0.6 mg/dL (0.6-1.3); POTASSIUM 3.5 mmol/L (3.5-5.1); TOTAL BILIRUBIN 0.6 mg/dL (0.0-1.0)
--- NOTE | 2020-08-19 07:00 | NUR ---
RCV'D PATIENT ON 15 L NRB. SPO2 91-93% NO SOB OR DISTRESS NOTED. WILL CONTINUE TO MONITOR.
--- NOTE | 2020-08-19 07:15 | NUR ---
ENDORSED PT TO DAY SHIFT NURSE FOR CONTINUITY OF CARE. O2 SAT IS 94% ON 15L O2 NRB. PT IS STABLE AT THIS TIME. PLAN OF CARE DISCUSSED.
--- NOTE | 2020-08-19 07:20 | NUR ---
PT RECEIVED FROM CAR RENTAL SERVICE ATTENDANT RN. BEDSIDE REPORT RECEIVED. PT RESTING IN BED AWAKE ABLE TO MAKE NEEDS KNOWN. PT ON NON REBREATHER MASK 15L AT 94% NO S/S OF DISTRESS. CALL LIGHT IS WITHIN REACH. ALL SAFETY MEASURES ARE IN PLACE.
[2020-08-19 08:00] VITALS: BP 133/78
--- NOTE | 2020-08-19 08:08 | NUR ---
PT ASSISTED WITH OPENING BLINDS. AT WINDOW. BLINDS FELL ENGINEERING AWARE. NOS/S OF DISTRESS. CALL LIGHT WITHIN REACH. PT REORIENTED TO ROOM AND CALL LIGHT. CALL LIGHT IS WITHIN REACH. ALL SAFETY MEASURES ARE IN PLACE.
--- NOTE | 2020-08-19 08:15 | NUR ---
CHECKIN ON PATIENT. PT STILL ON 100% NRB SPO2 91% NO SOB OR DISTRESS NOTED. PT IS ON THE PHONE WITH HER . STANDING AT ROOM'S WINDOW. PT SAID SHE FEELS GOOD. WILL CONTINUE TO MONITOR.
--- NOTE | 2020-08-19 08:16 | NUR ---
RT AT BEDSIDE. PT RESUS HIGH FLOW NC, PT EDUCATED. PT STILL REFUSES. Addendum: 08/19/20 at 1043 by Dee Mayes RN RN PT REFUSES HIGH FLOW NC
--- NOTE | 2020-08-19 08:30 | NUR ---
PT ASSISTED WITH TOILETING, CLEANED UP AND BACK IN BED. ASSISTED WITH MEAL TRAY SET UP.
[2020-08-19] MEDS: APIXABAN 2.5 MG TAB PO SCH ×2 (08:39→20:25)
--- NOTE | 2020-08-19 08:45 | NUR ---
COPING MACHINE ASSEMBLER AT BEDSIDE.
[2020-08-19] MEDS: PANTOPRAZOLE 40 MG TABEC PO SCH (09:03)
--- NOTE | 2020-08-19 09:10 | NUR ---
MEDICATIONS GIVEN PER MD ORDER. PT EDUCATED AND VERBALIZED UNDERSTANDING. NO S/S OF DISTRESS 96% O2 . PT ASSISTED WITH CLEANING ROOM . ALL QUESTIONS ANSWERED.
--- NOTE | 2020-08-19 09:30 | NUR ---
ENGINEERING AT BEDSIDE.
--- NOTE | 2020-08-19 09:50 | NUR ---
PT ROUNDED ON , PT DENIES PAIN . NO S/S OF DISTRESS AT THIS TIME.
--- NOTE | 2020-08-19 10:05 | NUR ---
PT ASSISTED WITH PUTTING PHONE TO CHARGE. PT DENIES ANY OTHER NEEDS AT THIS TIME . ALL QUESTIONS ANSWERED.
--- NOTE | 2020-08-19 10:27 | NUR ---
PT ASSISTED TO THE RESTROOM. PT TOLERATED WELL. PTS O2 ON COMMODE 87% , BACK IN BED SIDE LAYING POSITION AT 93%. PT DENIES PAIN AT THIS TIME NO S/S OF DISTRESS. ALL SAFETY MEASURES ARE IN PLACE. CALL LIGHT WITHIN REACH
--- NOTE | 2020-08-19 11:02 | NUR ---
PT ROUNDED ON . PT ASSISTED TO RESTROOM. PT AT 84% DURING TOILETING. PT BACK IN BED AT 92%. PT STATES THAT HER OXYGEN IS TO HIGH AND WANTS TO GO ON 8 L NOT 15 L. PT EDUCATED RT AWARE. PT ABLE TO MAKE NEEDS KNOWN .
[2020-08-19] MEDS: DEXAMETHASONE 10 MG/ML VIAL IVP SCH (11:06)
--- NOTE | 2020-08-19 11:08 | NUR ---
GOT CALL FROM CHARGE YULIA CARTWRIGHT AND TAR BOILER SINDY FOR NEW ORDERS PER MD RIVERA. TO PLACE PT ON HIGH FLOW IF NEEDED IF PT'S SPO2 IS BELOW 90% RESTING AND IF NEEDED ALSO USE BIPAP. OF NOW PT'S SPO2 IS 91-93%. WILL CONTINUE TO MONITOR PATIENT AND WILL ENDORSE ORDERS TO COMING RTs WELL.
--- NOTE | 2020-08-19 11:10 | NUR ---
MEDICATIONS GIVEN PER MD ORDER. PT EDUCATED AND VERBALIZED UNDERSTANDING. PT TOLERATED WELL. NO S/S OF DISTRESS.. ALL SAFETY MEASURES ARE IN PLACE.
[2020-08-19] MEDS: REMDESIVIR. 100 MG in NACL 0.9% 100 ML IV SCH (11:11)
--- NOTE | 2020-08-19 11:20 | NUR ---
PT WAS GIVEN WATER, PT'S ROOM WAS CLEANED, PT BEDS SHEETS CHANGED. PT TOLERATED WELL. NO S/S OF DISTRESS AT THIS TIME.
--- NOTE | 2020-08-19 11:34 | NUR ---
PT CALLED FOR WIPES. PT WAS PROVIDED WIPES. PT IS RESTING IN BED COMFORTABLY SAYS SHE WILL COMPLAIN AND LEAVE HOME. PT EDUCATED REINFORCEMENT NEEDED.
[2020-08-19 12:00] VITALS: BP 138/71
--- NOTE | 2020-08-19 12:11 | NUR ---
CLEAT FEEDER AT BEDSIDE HELPING WITH MEAL TRAY SET UP , TOILETING NEEDS.
--- NOTE | 2020-08-19 12:59 | NUR ---
PER MD RIVERA TO KEEP SPO2 88% AND ABOVE. WILL FOLLOW WITH ORDER. NO SOB OR DISTRESS NOTED. WILL CONTINUE TO MONITOR PATIENT.
--- NOTE | 2020-08-19 13:30 | NUR ---
08/19/20 RD INITIAL ASSESSMENT COMPLETED PLEASE REFER TO NUTRITION ASSESSMENT UNDER CARE ACTIVITY FOR ESTIMATED NUTRITIONAL NEEDS. 1. RECOMMEND MECHANICAL SOFT DIET TOLERATED 2. RECOMMEND ENSURE BID 3. RD PROVIDED NUTRITION EDUCATION FOR COVID-[address] TO FOLLOW-UP 2-3 DAYS, HIGH RISK GAB MCCALLUM, RD
--- NOTE | 2020-08-19 13:35 | NUR ---
PT DAUGHTER CAME IN. DAUGHTER EDUCATED NOT TO LEAVE ROOM. DAUGHTER VERBALIZED UNDERSTANDING. DAUGHTER AWARE THAT SHE WILL BE EXPOSED.
--- NOTE | 2020-08-19 13:40 | NUR ---
PT ASSISTED WITH TOILETING PT TOLERATED WELL. NO S/S OF DISTRESS AT THIS TIME. PT 88% DURING EXERTION. PT 92% WHEN IN BED. PT EDUCATED TO BE PRONE.
--- NOTE | 2020-08-19 14:15 | NUR ---
PT IS PRONING. SPO2 IS 99% HR 61.STILL ON 15 L NRB. PT IS AWAKE AND ALERT. DAUGHTER IN ROOM AND EXPLAINED TO PATIENT HOW IMPORTANT TO KEEP NRB MASK ON AND TO PRONE TO IMPROVE HER OXYGEN LEVELS. PTS NODDED UNDERSTANDING. ASKED IF PATIENT FEELS OKAY, PATIENT NODDED YES. NO SOB OR DISTRESS NOTED. RN AWARE CHARGE NURSE CHAY EVANS AND TELE DIRECTOR SINDY EVANS. WILL CONTINUE TO MONITOR PATIENT.
--- NOTE | 2020-08-19 14:15 | NUR ---
PT IN BED PRONE. PT ASSISTED WITH MASK. PT ABLE TO MAKE NEEDS KNOWN. PT VERBALIZED UNDERSTANDING.
--- NOTE | 2020-08-19 15:02 | NUR ---
DAUGHTER LEFT UNIT. DAUGHTER UNDERSTANDS SHE HAS NOW BEEN EXPOSED AFTER VISITING DAUGHTER. DAUGHTER AWARE OF RISKS OF VISITATION AND VERBALIZED UNDERSTANDING. PT RESTING IN BED GIVEN WATER NO S/S OF DISTRESS
[2020-08-19 16:00] VITALS: BP 140/61
--- NOTE | 2020-08-19 16:02 | NUR ---
PT ROUNDED ON PT PRONE 94% . DAUGHTER AT BEDSIDE. Addendum: 08/19/20 at 1604 by Dee Mayes RN RN THEY SAID ALL THEIR NEEDS WERE MET AT THIS TIME. ALL SAFETY MEASURES ARE IN PLACE.
--- NOTE | 2020-08-19 18:20 | NUR ---
PT AMBULATED TO BEDSIDE TOILET. NO S/S OF DISTRESS AT THIS TIME. WILL CONTINUE TO MONITOR.
--- NOTE | 2020-08-19 19:25 | NUR ---
PT ENDORSED TO FREELANCE DESIGNER NURSE OT PRONE 89% ON 15 L NON REBREATHER MASK. NO S/S OF DISTRESS AT THIS TIME.
--- NOTE | 2020-08-19 19:26 | NUR ---
RECEIVING PATIENT FROM AM NURSE FOR CONTINUITY OF CARE. PATIENT IS ON TELE MONITOR, FULL CODE. A/A/O X4. ON PRONE POSITION WITH 15L OXYGEN VIA NON REBREATHER MASK, O2 SAT 96%, NO SIGN OF DISTRESS NOTED. SKIN WARM, DRY, NON-DIAPHORETIC. IV ON LEFT FA 22G, SALINE LOCK, PATENT AND INTACT. BEDSIDE COMMODE AT BEDSIDE. PATIENT DENIES ANY PAIN OR DISCOMFORT. PLAN OF CARE DISCUSSED. CALL LIGHT WITHIN REACH. HOB ELEVATED. PRECAUTION IN PLACE. WILL CONTINUE TO MONITOR.
[2020-08-19 20:00] VITALS: BP 147/79
--- NOTE | 2020-08-19 20:25 | NUR ---
SCHEDULE MEDICATION GIVEN WITH EDUCATION. PATIENT VERBALIZED UNDERSTANDING. DENIES ANY PAIN OR SOB, ON 15L NON REBREATHER, O2 SAT 95%, NO SIGN OF DISTRESS NOTED. HOB ELEVATED. PRECAUTION IN PLACE. CALL LIGHT WITHIN REACH. WILL CONTINUE TO MONITOR.
--- NOTE | 2020-08-19 21:00 | NUR ---
PATIENT AMBULATES TO BEDSIDE COMMODE. NO SIGN OF DISTRESS NOTED. O2 SAT 95%. CALL LIGHT WITHIN REACH. WILL CONTINUE TO MONITOR.
--- NOTE | 2020-08-19 22:00 | NUR ---
PATIENT REQUESTS REDUCE THE OXYGEN VIA NON-REBREATHER. EDUCATED THE ORDER AND IMPORTANT OF OXYGEN FOR HER. PATIENT NODDED HER HEAD TO AGREE. NO SIGN OF DISTRESS NOTED. O2 SAT 91%. CALL LIGHT WITHIN REACH. WILL CONTINUE TO MONITOR.
--- NOTE | 2020-08-19 22:30 | NUR ---
PATIENT SEEN LYING ON HER RIGHT SIDE, O2 SAT 94%, NO SIGN OF DISTRESS NOTED. PATIENT ASKS IF SHE CAN LYING ON HER STOMACH. EDUCATED ABOUT THE BENEFIT OF USING PRONE AND SIDE POSITION FOR HER CONDITION. PATIENT NODDED HER HEAD TO AGREE. CALL LIGHT WITHIN REACH. PRECAUTION IN PLACE. WILL CONTINUE TO MONITOR.
--- NOTE | 2020-08-19 23:05 | NUR ---
ROUND CHECK. ENVIRONMENTAL PROGRAMS SPECIALIST ASSISTED PATIENT TO TURN LIGHT OFF. PATIENT IS RESTING ON HER RIGHT SIDE, O2 SAT 97%, NO SIGN OF DISTRESS NOTED. CALL LIGHT WITHIN REACH. PRECAUTION IN PLACE. WILL CONTINUE TO MONITOR.
--- NOTE | 2020-08-19 23:36 | NUR ---
ROUND CHECK. PATIENT IS RESTING IN BED WITH PRONE POSITION. HOB ELEVATED. PATIENT NO COMPLAINS OF DISCOMFORT. NO SIGN OF RESPIRATORY DISTRESS NOTED, O2 SAT 94%. PRECAUTION IN PLACE. CALL LIGHT WITHIN REACH. WILL CONTINUE TO MONITOR.
[2020-08-20] VITALS: BP 136/73
--- NOTE | 2020-08-20 00:12 | NUR ---
ROUND CHECK. PATIENT IS RESTING, ON 15L NON REBREATHER MASK, O2 SAT 97%, NO SIGN OF RESPIRATORY DISTRESS NOTED. HOB ELEVATED. PRECAUTION IN PLACE. CALL LIGHT WITHIN REACH. WILL CONTINUE TO MONITOR.
--- NOTE | 2020-08-20 00:50 | NUR ---
RESPONSE FOR PATIENT CALL LIGHT. ASSIST PATIENT TO USE BEDSIDE COMMODE. O2 SAT 85-88% WITH ACTIVITIES. STABLE O2 SAT 90% AND UP WITH RESTING. PATIENT NO SIGN OF DISTRESS NOTED. CALL LIGHT WITHIN REACH. HOB ELEVATED. PRECAUTION IN PLACE. WILL CONTINUE TO MONITOR.
--- NOTE | 2020-08-20 01:47 | NUR ---
ROUND CHECK. PATIENT IS SLEEPING ON HER RIGHT SIDE, CHEST RISE AND FALL NOTED, O2 SAT 95%, NO SIGN OF DISTRESS NOTED. HOB ELEVATED, PRECAUTION IN PLACE. CALL LIGHT WITHIN REACH. WILL CONTINUE TO MONITOR.
--- NOTE | 2020-08-20 02:15 | NUR ---
RESPONSE TO PATIENT CALL LIGHT. PATIENT COMPLAINS OF FEELING TIRED DUE TO THE NON-REBREATHER MASK. COMFORT PATIENT WITH WATER AND CHANGE POSITION. PATIENT REPORT FEELING BETTER. NO SIGN OF DISTRESS NOTED, O2 SAT 93%. HOB ELEVATED. PRECAUTION IN PLACE. CALL LIGHT WITHIN REACH. WILL CONTINUE TO MONITOR.
--- NOTE | 2020-08-20 02:25 | NUR ---
RESPONSE TO PATIENT'S CALL LIGHT. PATIENT REQUESTS ASSISTANCE TO USE BEDSIDE COMMODE. O2 SAT 82-85% WITH ACTIVITIES, O2 SAT 88-92% WITH RESTING IN BED. PATIENT IS EDUCATED CONTINUE REST IN PRONE POSITION. HOB ELEVATED, CALL LIGHT WITHIN REACH. PRECAUTION IN PLACE. WILL CONTINUE TO MONITOR.
--- NOTE | 2020-08-20 02:57 | NUR ---
RESPONSE PATIENT'S CALL LIGHT. CERTIFIED ENERGY MANAGER #[id number], PATIENT COMPLAINS "CANNOT BREATH", AND MOUTH DRY DUE TO NON REBREATHER MASK. O2 SAT 90%, RESPIRATORY RATE 22. CONTACTED RT, RT AWARE. CHARGE NURSE AWARE.
--- NOTE | 2020-08-20 03:20 | NUR ---
RT ASSIST PATIENT AT BEDSIDE. PATIENT REFUSES TO TRY HIGH FLOW NASAL CANULA AFTER EDUCATE THE ADVANTAGE AND DISADVANTAGE, PATIENT AGREES TO CONTINUE WITH 15L OXYGEN NON REBREATHER MASK. PATIENT DENIES SOB WITH RT. ENCOURAGE PATIENT INCREASE FLUID INTAKE TO HELP WITH MOUTH DRY. PATIENT IS NO SIGN OF RESPIRATORY DISTRESS NOTED, O2 SAT 94%, RESTING IN BED. HOB ELEVATED, CALL LIGHT WITHIN REACH. PRECAUTION IN PLACE. WILL CONTINUE TO MONITOR.
[2020-08-20 04:00] VITALS: BP 129/79
--- NOTE | 2020-08-20 04:00 | NUR ---
RESPONSE PATIENT'S CALL LIGHT. STAND BY FOR ASSIST PATIENT TO USE BEDSIDE COMMODE. PATIENT AMBULATES WITH STEADY GAIT INDEPENDENTLY. PATIENT RETURN TO BED IN PRONE POSITION, NO SIGN OF DISTRESS NOTED, O2 SAT 92%. HOB ELEVATED, CALL LIGHT WITHIN REACH. WILL CONTINUE TO MONITOR.
--- NOTE | 2020-08-20 05:35 | NUR ---
ROUND CHECK. PATIENT IS SLEEPING ON HER RIGHT SIDE, CHEST RISE AND FALL NOTED, O2 SAT 97%, NO SIGN OF DISTRESS NOTED. PRECAUTION IN PLACE. CALL LIGHT WITHIN REACH. WILL CONTINUE TO MONITOR.
--- NOTE | 2020-08-20 06:45 | NUR ---
ROUND CHECK. PATIENT IS RESTING IN BED WITH HOB ELEVATED. PATIENT IS NO SIGN OF DISTRESS NOTED, O2 SAT 95%. CALL LIGHT WITHIN REACH. PRECAUTION IN PLACE. WILL CONTINUE TO MONITOR.
--- NOTE | 2020-08-20 07:20 | NUR ---
ENDORSED PATIENT TO AM NURSE FOR CONTINUITY OF CARE. PATIENT IS STABLE.
--- NOTE | 2020-08-20 07:21 | NUR ---
RECEIVED REPORT FROM RESPITE CARE PROVIDER NURSE. PATIENT SITTING IN BED WATCHING TV. NO DISTRESS NOTED. ON NRB 15L/MIN VIA NC. SAFETY MEASURES IN PLACE, CALL LIGHT WITHIN REACH. WILL CONTINUE TO MONITOR.
[2020-08-20 08:00] VITALS: BP 130/62
--- NOTE | 2020-08-20 08:00 | NUR ---
PATIENT CALLED REQUESTING FOR TISSUES, GIVEN PER PATIENT REQUEST. WILL CONTINUE TO MONITOR.
--- NOTE | 2020-08-20 09:00 | NUR ---
PATIENT CALLED REQUESTING HAND CLINICAL RESEARCH TECH. GIVEN PER PATIENT REQUEST. WILL CONTINUE TO MONITOR.
[2020-08-20] MEDS: PANTOPRAZOLE 40 MG TABEC PO SCH (09:32)
[2020-08-20] MEDS: APIXABAN 2.5 MG TAB PO SCH ×2 (09:33→20:26)
--- NOTE | 2020-08-20 09:33 | NUR ---
SCHEDULED MEDICATIONS DUE GIVEN. WILL CONTINUE TO MONITOR.
--- NOTE | 2020-08-20 10:00 | NUR ---
RECLINER CHAIR WHEELED INTO PATIENT'S ROOM FOR PATIENT'S FAMILY MEMBER TO VISIT LATER TODAY. WILL CONTINUE TO MONITOR.
--- NOTE | 2020-08-20 10:30 | NUR ---
PHYSICAL THERAPIST AT BEDSIDE WORKING WITH PATIENT. PHYSICAL THERAPIST ASSISTED PATIENT TO BEDSIDE COMMODE AND BACK TO BED. WILL CONTINUE TO MONITOR.
--- NOTE | 2020-08-20 11:00 | NUR ---
DR. RIVERA AT BEDSIDE REVIEWING PLAN OF CARE WITH PATIENT. PER DR. RIVERA CONTINUE NRB 15 L/MIN, PATIENT COMPLAINS OF DRY MOUTH FROM NRB BUT DR. RIVERA EDUCATED PATIENT AND FAMILY ON THE PHONE ON IMPORTANCE OF KEEPING OXYGEN SATURATIONS GREATER THAN 88%. PATIENT CAN CONTINUE TO TAKE SIPS OF WATER NEEDED TO HELP WITH DRY MOUTH.
[2020-08-20] MEDS: DEXAMETHASONE 10 MG/ML VIAL IVP SCH (11:49)
[2020-08-20 12:00] VITALS: BP 143/74
--- NOTE | 2020-08-20 12:40 | NUR ---
OLD IV SITE INFILTRATED. REMOVED WITH MINIMAL BLOOD AND LUMEN COMPLETELY INTACT. NEW IV LINE INSERTED ON LEFT HAND #24 GAUGE. PATIENT TOLERATED WELL. WILL CONTINUE TO MONITOR.
--- NOTE | 2020-08-20 15:00 | NUR ---
ASSISTED PATIENT WITH CLEANING COMMODE AND NEW WATER. WILL CONTINUE TO MONITOR.
[2020-08-20 16:00] VITALS: BP 125/71
--- NOTE | 2020-08-20 17:32 | NUR ---
PATIENT SITTING IN BED TALKING ON THE PHONE. NO DISTRESS NOTED. CONDITION UNCHANGED. WILL CONTINUE TO MONITOR.
[2020-08-20] MEDS ORDERED: ACETAMINOPHEN 325 MG TAB PO PRN (18:40)
--- NOTE | 2020-08-20 19:36 | NUR ---
GAVE REPORT TO MEAT COUNTER CLERK NURSE FOR CONTINUITY OF CARE. PATIENT IN STABLE CONDITION.
--- NOTE | 2020-08-20 19:37 | NUR ---
RECEIVING PATIENT FROM AM NURSE FOR CONTINUITY OF CARE. PATIENT IS RESTING IN BED. ON TELE MONITOR. TAMAZIGHT SPEAKING, ABLE TO COMMUNICATE BY CYMRAES. A/A/O X4. RESPIRATORY EVEN AND UNLABORED, ON 15L OXYGEN NON REBREATHER MASK, O2 SAT 99%, NO SIGN OF DISTRESS AT THIS TIME. SKIN WARM, DRY, NON-DIAPHORETIC. IV ON LEFT HAND 24G, SALINE LOCK, PATENT AND INTACT. PATIENT DENIES ANY PAIN OR DISCOMFORT. ABLE TO MAKE NEEDS KNOW. PLAN OF CARE DISCUSSED. HOB ELEVATED. PRECAUTION IN PLACE. CALL LIGHT WITHIN REACH. WILL CONTINUE TO MONITOR.
[2020-08-20 20:00] VITALS: BP 112/64
--- NOTE | 2020-08-20 20:04 | NUR ---
PATIENT'S DAUGHTER- LINH- ARRIVAL TO UNIT. EDUCATED THE POLICY AND PRECAUTION PROTOCOL, SHE VERBALIZED UNDERSTANDING.
--- NOTE | 2020-08-20 20:26 | NUR ---
SCHEDULE MEDICATION GIVEN WITH EDUCATION TO PATIENT AND FAMILY. THEY VERBALIZED UNDERSTANDING. PATIENT NO SIGN OF DISTRESS NOTED. ON 15L OXYGEN VIA NON REBREATHER MASK, O2 SAT 94%. HOB ELEVATED. PRECAUTION IN PLACE. CALL LIGHT WITHIN REACH. WILL CONTINUE TO MONITOR.
--- NOTE | 2020-08-20 21:00 | NUR ---
ASSIST PATIENT'S FAMILY TO CLEAN AND CHANGE NEW GOWN FOR PATIENT. PATIENT TOLERATED WELL. PATIENT CALM AND COOPERATIVE. NO RESPIRATORY DISTRESS NOTED, O2 SAT 94%. CALL LIGHT WITHIN REACH. CALL LIGHT WITHIN REACH. WILL CONTINUE TO MONITOR.
--- NOTE | 2020-08-20 22:00 | NUR ---
ROUND CHECK. PATIENT IS AWAKE, WATCHING TV. FAMILY MEMBER AT BEDSIDE. PATIENT DENIES ANY DISCOMFORT OR SOB. NO SIGN OF DISTRESS NOTED, O2 SAT 94%. HOB ELEVATED. CALL LIGHT WITHIN REACH. WILL CONTINUE TO MONITOR.
[2020-08-21] VITALS: BP 116/58
--- NOTE | 2020-08-21 | NUR ---
ROUND CHECK. PATIENT IS SLEEPING, NO SIGN OF DISTRESS NOTED, O2 SAT 95%. FAMILY AT BEDSIDE. CALL LIGHT WITHIN REACH. HOB ELEVATED. PRECAUTION IN PLACE. WILL CONTINUE TO MONITOR.
--- NOTE | 2020-08-21 00:17 | NUR ---
PATIENT COMPLAINS OF HEADACHE. TYLENOL WAS GIVEN WITH EDUCATION TO PATIENT AND FAMILY, VERBALIZED UNDERSTANDING. CALL LIGHT WITHIN REACH. PRECAUTION IN PLACE. WILL CONTINUE TO MONITOR.
[2020-08-21] MEDS: HYDRAGUARD CREAM TP SCH ×2 (01:00→12:20)
--- NOTE | 2020-08-21 02:00 | NUR ---
ROUND CHECK. PATIENT IS SLEEPING WITH HOB ELEVATED, CHEST RISE AND FALL NOTED, O2 SAT 95%. PRECAUTION IN PLACE. CALL LIGHT WITHIN REACH. WILL CONTINUE TO MONITOR.
[2020-08-21 04:00] VITALS: BP 107/52
--- NOTE | 2020-08-21 04:00 | NUR ---
ROUND CHECK. PATIENT IS SLEEPING ON HER RIGHT SIDE, CHEST RISE AND FALL NOTED, NO SIGN OF DISTRESS NOTED. FAMILY AT BEDSIDE. HOB ELEVATED. CALL LIGHT WITHIN REACH. PRECAUTION IN PLACE. WILL CONTINUE TO MONITOR.
--- NOTE | 2020-08-21 06:15 | NUR ---
PROVIDED PATIENT WARM BLANKET. PATIENT IS RESTING IN HER RIGHT SIDE, NO SIGN OF RESPIRATORY DISTRESS NOTED. CALL LIGHT WITHIN REACH. PRECAUTION IN PLACE. HOB ELEVATED. WILL CONTINUE TO MONITOR.
--- NOTE | 2020-08-21 07:15 | NUR ---
ENDORSED PATIENT TO AM NURSE FOR CONTINUITY OF CARE. PATIENT IS STABLE.
--- NOTE | 2020-08-21 07:16 | NUR ---
Received report from pm nurse. Pt asleep in bed, respirations even & nonlabored on O2 @ 15L/min via NRB mask. Daughter at bedside awake.
[2020-08-21 08:00] VITALS: BP 111/68
[2020-08-21] MEDS: APIXABAN 2.5 MG TAB PO SCH ×2 (08:38→20:25)
[2020-08-21] MEDS: PANTOPRAZOLE 40 MG TABEC PO SCH (08:38)
--- NOTE | 2020-08-21 08:40 | NUR ---
Pt sitting up in bed, aaox4, respirations even & nonlabored on O2 @ 15Lpm via NRB mask. Daughter Jennifer at bedside to assist with ADLs. AM meds administered.
[2020-08-21] MEDS: DEXAMETHASONE 10 MG/ML VIAL IVP SCH (11:09)
[2020-08-21 12:00] VITALS: BP 111/60
[2020-08-21 16:00] VITALS: BP 128/72
--- NOTE | 2020-08-21 16:21 | NUR ---
Patient remains on NRB, instructed patient on use of I.S. Patient tried but gave little effort with I.S. Pt tolerating NRB at this time.
--- NOTE | 2020-08-21 19:25 | NUR ---
RECEIVED BEDSIDE REPORT FROM DAY RN. PT IS AAOX4. RESPIRATIONS ARE EQUAL AND UNLABORED ON 12L VIA NRB SAT 94%. LUNG SOUNDS ARE DIMINISHED IN LOWER LOBES, PT SITTING UP IN BED WATCHING TV NO S/S OF DISTRESS. SKIN IS INTACT. IV ON LAC 20G SL. PT IS AMBULATORY AND ABLE TO MAKE NEEDS KNOWN. ON DROPLET ISOLATION COVID 19 +. POC DISCUSSED WITH PT. CALL LIGHT IS WITHIN REACH. WILL CONTINUE TO MONITOR.
[2020-08-21 20:00] VITALS: BP 104/61
--- NOTE | 2020-08-21 20:25 | NUR ---
VSS. PT ON 12L VIA NRB SAT WELL 88-90%. PT SITING UP FACE TIMING WITH DAUGHTER. SHADY MEDICATION GIVEN. MED EDUCATION GIVEN PT VERBALIZED UNDERSTANDING. GAVE PT WATER PER REQUEST. ENCOURAGE PT TO USE IS 10X AN HOUR WHEN AWAKE. PT VERBALIZED UNDERSTANDING. PT WITH PRODUCTIVE COUGH CLEAR/WHITE IN COLOR. POC REVIEWED. CALL LIGHT IS WITHIN REACH. WILL CONTINUE TO MONITOR.
--- NOTE | 2020-08-21 22:13 | NUR ---
MADE ROUNDS. PT IS SITTING UP WATCHING TV SAT WELL 94% ON 12L NRB. NO S/S OF DISTRESS. CALL LIGHT IS WITHIN REACH.
[2020-08-22] VITALS: BP 112/58
--- NOTE | 2020-08-22 00:10 | NUR ---
VITAL SIGNS ARE STABLE. PT RESTING COMFORTABLY IN BED TALKING ABOUT FAMILY TO NURSE. DENIES ANY S/S OF DISTRESS. ALL NEEDS MET CALL LIGHT IS WITHIN REACH.
[2020-08-22] MEDS: HYDRAGUARD CREAM TP SCH ×2 (01:04→13:00)
--- NOTE | 2020-08-22 02:02 | NUR ---
MADE ROUNDS. PT LAYING IN BED COMFORTABLY SAT WELL 92%. CALL LIGHT IS WITHIN REACH. WILL CONTINUE TO MONITOR.
[2020-08-22 04:00] VITALS: BP 114/50
--- NOTE | 2020-08-22 04:00 | NUR ---
VITAL SIGNS ARE WITHIN NORMAL LIMITS. ALL SAFETY MEASURES ARE IN PLACE. WILL CONTINUE TO MONITOR
--- NOTE | 2020-08-22 07:25 | NUR ---
RECEIVED REPORT FROM DIFFERENTIAL REPAIRER RN FOR CONTINUITY OF CARE. PATIENT RESTING IN BED, WITH 12L OXYGEN VIA NRB. SKIN WARM TO DRY. IV TO LEFT FOREARM SALINE LOCK. NO ACUTE DISTRESS NOTED AT THIS TIME, WILL CONTINUE TO MONITOR.
--- NOTE | 2020-08-22 07:25 | NUR ---
GAVE BEDSIDE REPORT TO DAY RN. PT ENDORSED IN STABLE CONDITION.
[2020-08-22 08:00] VITALS: BP 100/60
--- NOTE | 2020-08-22 08:04 | NUR ---
Patient remains on NRB, I.S. reinforced but patients level of effort is low, and she prefers to sitting up rather then trying prone/side. Informed patient to try prone or side for better oxygenation but she prefers to being able to sit up in bed at this time.
--- NOTE | 2020-08-22 08:45 | NUR ---
(08/22/20) RD FOLLOW UP COMPLETED PLEASE REFER TO NUTRITION PROGRESS NOTE UNDER CARE ACTIVITY FOR ESTIMATED NUTRITION NEEDS. RD RECOMMENDATIONS: 1. CONTINUE MECHANICAL SOFT DIET TOLERATED 2. CONTINUE ENSURE BID 3. RD TO FOLLOW-UP 3-5 DAYS, MODERATE RISK JIM MARK MS, RDN
[2020-08-22] MEDS: VITAMIN D 400 IU TAB PO SCH (08:54)
[2020-08-22] MEDS: ZINC SULF 220 MG CAP PO SCH (08:54)
[2020-08-22] MEDS: ASCORBIC ACID 500 MG TAB PO SCH ×2 (08:54→20:47)
[2020-08-22] MEDS: PANTOPRAZOLE 40 MG TABEC PO SCH (08:55)
[2020-08-22] MEDS: APIXABAN 2.5 MG TAB PO SCH ×2 (08:58→20:47)
--- NOTE | 2020-08-22 09:40 | NUR ---
PATIENT SITTING IN BED, NRB WITH 15L OXYGEN. HOWEVER, PATIENT TOOK OFF THE NRB STATING THAT TOO MUCH AIR AND MAKE HER MOUTH TOO DRY. O2 SAT 85%. DECREASED O2 BACK TO 12L. PATIENT PUT NRB MASK BACK ON AND PUT THUMB,, O2 SAT 92%, HR 69. INFORMED PATIENT NEED TO KEEP MASK ON. TAKE DEEP BREATH AND USE INCENTIVE SPIROMETER IF POSSIBLE. PATIENT NODDED HER HEAD. WILL CONTINUE TO MONITOR.
--- NOTE | 2020-08-22 10:10 | NUR ---
PATIENT RESTING IN BED, O2 SAT 94%, DECREASED O2 TO 12L, PATIENT TOLERATED WELL. MONITOR ANOTHER 5 MINS, DECREASED TO 10L, O2 SAT 92%, WILL CONTINUE TO MONITOR.
[2020-08-22] MEDS: DEXAMETHASONE 10 MG/ML VIAL IVP SCH (10:59)
[2020-08-22 12:00] VITALS: BP 105/56
--- NOTE | 2020-08-22 12:54 | NUR ---
Witnessed patient walking from her bathroom on room air with family member present. Inquired why she was walking to bathroom on room air and family member stated that patient did not want to use bedside commode and wanted to use bathroom. Offered patient/family member an oxygen tank to walk to bathroom with and patient refused. Patient informed family member that she would wear non-rebreather to bathroom if oxygen tubing was longer. Added two more lines of oxygen tubing so patient could reach bathroom. Informed family member to tell patient to please be careful not to trip on lines. Informed charge nurse of patients refusal of bedside commode and removal of NRB when it suited her.
--- NOTE | 2020-08-22 15:03 | NUR ---
PATIENT SITTING AT THE SIDE OF THE BED. O2 SAT 92% WITH 8L OXYGEN VIA NRB, HR 97, ENCOURAGED PATIENT TO TAKE DEEP BREATH. SAFETY MEASURES IN PLACE, WILL CONTINUE TO MONITOR.
[2020-08-22 16:00] VITALS: BP 101/57
--- NOTE | 2020-08-22 16:58 | NUR ---
PATIENT RESTING IN BED, O2 SAT 95% WITH 8L OXYGEN WITH NRB. DECREASED O2 TO 6L. O2 SAT 94%, PATIENT TOLERATED WELL. WILL CONTINUE TO CLOSELY TO MONITOR.
--- NOTE | 2020-08-22 18:24 | NUR ---
CHANGED NRB MASK TO NC. O2 SAT 91-92%. HR 71, PATIENT TOLERATED WELL, HAVING DINNER.
--- NOTE | 2020-08-22 19:12 | NUR ---
ENDORSED PATIENT TO WATER CARTER RN FOR CONTINUITY OF CARE. PATIENT IN STABLE CONDITION WITH 6L OXYGEN VIA NC, O2 SAT 94%.
--- NOTE | 2020-08-22 19:13 | NUR ---
RECEIVED BEDSIDE REPORT FROM DAY RN. PT IS AAOX4. RESPIRATIONS ARE EQUAL AND UNLABORED ON 6L VIA NC SAT 94%. LUNG SOUNDS ARE DIMINISHED IN LOWER LOBES, PT SITTING UP IN BED WATCHING TV NO S/S OF DISTRESS. SKIN IS INTACT. IV ON LH 24G SL. PT IS AMBULATORY AND ABLE TO MAKE NEEDS KNOWN. ON DROPLET ISOLATION COVID 19 +. POC DISCUSSED WITH PT. CALL LIGHT IS WITHIN REACH. WILL CONTINUE TO MONITOR.
[2020-08-22 20:00] VITALS: BP 109/62
--- NOTE | 2020-08-22 20:47 | NUR ---
VITAL SIGNS ARE STABLE. PT SITTING UP TALKING ON THE PHONE DENIES ANY S/SX OF DISTRESS. SHADY MEDICATIONS GIVEN PER ORDERS. MED EDUCATION GIVEN. POC REVIEWED WITH PT. ALL NEEDS MET. CALL LIGHT IS WITHIN REACH.
--- NOTE | 2020-08-22 23:15 | NUR ---
PT SITTING UP IN BED DENIES ANY COMPLAINTS AT THIS TIME. PT EXPRESSES SHES READY TO GO HOME WITH HER GRANDCHILDREN. PT SHARED STORIES ABOUT HER FAMILY. PT SEEMS IN GOOD SPIRITS. WILL CONTINUE TO MONITOR
[2020-08-23] VITALS: BP 105/57
--- NOTE | 2020-08-23 00:30 | NUR ---
VITAL SIGNS ARE WITHIN NORMAL LIMITS. ALL SAFETY MEASURES ARE IN PLACE. WILL CONTINUE TO MONITOR.
[2020-08-23] MEDS: HYDRAGUARD CREAM TP SCH ×2 (01:18→13:00)
--- NOTE | 2020-08-23 02:15 | NUR ---
MADE ROUNDS. PT APPEARS TO BE ASLEEP. CHEST RISE AND FALL NOTED. CALL LIGHT IS WITHIN REACH.
[2020-08-23 04:00] VITALS: BP 105/62
--- NOTE | 2020-08-23 04:15 | NUR ---
VITAL SIGNS ARE WITHIN NORMAL LIMITS. ALL SAFETY MEASURES ARE IN PLACE. WILL CONTINUE TO MONITOR.
[2020-08-23 06:55] LABS: MAGNESIUM 1.9 mg/dL (1.8-2.4)
[2020-08-23 07:02] LABS: BASOPHILS % (AUTO) 0.1 % (0.0-2.0); EOSINOPHILS % (AUTO) 0.4 % (0.0-4.0); HEMATOCRIT 35.5 % (36-48); LYMPHOCYTES # (AUTO) 1.3 K/uL (2.5-16.5); LYMPHOCYTES % (AUTO) 10.5 % (20.5-51.1); MEAN CORPUSCULAR HEMOGLOBIN 30 pg (27-31); MEAN CORPUSCULAR HGB CONC 34 g/dL (33-37); MEAN CORPUSCULAR VOLUME 89.2 fL (80-94); MONOCYTES % (AUTO) 8.2 % (1.7-9.3); NEUTROPHILS # (AUTO) 10.1 K/uL (1.8-7.7); NEUTROPHILS % (AUTO) 80.8 % (42.2-75.2); PLATELET COUNT (AUTO) 322 K/uL (140-450); RED BLOOD CELL COUNT(AUTO) 3.98 MIL/uL (4.20-5.40); RED CELL DISTRIBUTION WIDTH 13.2 % (11.6-13.7); WHITE BLOOD COUNT (AUTO) 12.5 K/uL (4.8-10.8)
[2020-08-23 07:06] LABS: ALBUMIN 2.3 g/dL (3.4-5.0); ANION GAP 11.1 (8-16); CARBON DIOXIDE 27.7 mmol/L (21-32); CREATININE 0.5 mg/dL (0.6-1.3); POTASSIUM 3.8 mmol/L (3.5-5.1); TOTAL BILIRUBIN 0.5 mg/dL (0.0-1.0)
--- NOTE | 2020-08-23 07:16 | NUR ---
GAVE BEDSIDE REPORT. PT ENDORSED IN STABLE CONDITION.
--- NOTE | 2020-08-23 07:17 | NUR ---
RECEIVED REPORT FROM COMMUNICATION CONSULTANT RN FOR CONTINUITY OF CARE. PATIENT RESTING IN BED IN SITTING POSITION. O2 SAT 92% WITH 6L VIA NC, HR 54, DENIES DISCOMFORT AT THIS TIME. ENCOURAGED PATIENT TO RELAX AND TAKE DEEP BREATH, USE INCENTIVE SPIROMETER IF POSSIBLE. SAFETY MEASURES IN PLACE, WILL CONTINUE TO MONITOR.
[2020-08-23 08:00] VITALS: BP 111/69
[2020-08-23] MEDS: APIXABAN 2.5 MG TAB PO SCH ×2 (09:26→20:29)
[2020-08-23] MEDS: ASCORBIC ACID 500 MG TAB PO SCH ×2 (09:27→20:34)
[2020-08-23] MEDS: ZINC SULF 220 MG CAP PO SCH (09:27)
[2020-08-23] MEDS: VITAMIN D 400 IU TAB PO SCH (09:27)
[2020-08-23] MEDS: PANTOPRAZOLE 40 MG TABEC PO SCH (09:27)
--- NOTE | 2020-08-23 09:27 | NUR ---
SCHEDULED MEDICATIONS GIVEN, EDUCATION PROVIDED. PATIENT RESTING IN BED WITH O2 SAT 94% WITH 5L OXYGEN VIA NC WITH HUMIDIFIER. DECREASED OXYGEN TO 4L, O2 SAT 92%, HR 60, MONITORED 5 MINS, PATIENT TOLERATED WELL, WILL CONTINUE TO CLOSELY TO MONITOR AND WEAN OFF THE OXYGEN IF PATIENT TOLERATE WELL.
[2020-08-23] MEDS ORDERED: POTASSIUM CHLORIDE 10 MEQ TABER PO SCH (10:07)
[2020-08-23] MEDS ORDERED: MAG SULF 2000 MG/WATER PREMIX 50 ML IV ONE (10:07)
--- NOTE | 2020-08-23 11:43 | NUR ---
MAG RIDER AND POTASSIUM GIVEN PER MD ORDER. PATIENT RESTING IN BED IN HIGH RESENDEZ'S POSITION, O2 SAT 93% WITH 4L OXYGEN VIA NC WITH HUMIDIFIER. SAFETY MEASURES IN PLACE, WILL CONTINUE TO MONITOR.
[2020-08-23] MEDS: DEXAMETHASONE 10 MG/ML VIAL IVP SCH (11:49)
[2020-08-23 12:00] VITALS: BP 102/57
[2020-08-23] MEDS ORDERED: POTASSIUM CHLORIDE 10 MEQ TABER PO ONE (12:50)
--- NOTE | 2020-08-23 12:52 | NUR ---
PATIENT RESTING IN BED TOLERATED 4L OXYGEN VIA NC WELL. O2 SAT 93%, NO S/S OF RESPIRATORY DISTRESS NOTED. WILL CONTINUE TO MONITOR.
--- NOTE | 2020-08-23 12:52 | NUR ---
PATIENT SITTING AT SIDE OF THE BED. O2 SAT 88%, INFORMED PATIENT TO PRONE, HOWEVER, PATIENT DID NOT FOLLOW. INCENTIVE SPIROMETER AT SIDE. INFORMED PATIENT TO USE IT 10 TIMES/HOUR WHILE HE IS AWAKE. PATIENT STATED THAT HE WOULD DO IT LATER. Addendum: 08/23/20 at 1855 by Brent Cruz RN WRONG PATIENT, WRONG DOCUMENTATION.
--- NOTE | 2020-08-23 14:57 | NUR ---
PATIENT RESTING IN BED WITH RIGHT LATERAL POSITION, O2 SAT 90%. Addendum: 08/23/20 at 1856 by Brent Cruz RN WRONG PATIENT, WRONG DOCUMENTATION.
[2020-08-23 16:00] VITALS: BP 111/66
[2020-08-23] MEDS: LEVOFLOXACIN 750 MG/D5W PREMIX 150 ML IV SCH (16:17)
--- NOTE | 2020-08-23 19:30 | NUR ---
ENDORSED PATIENT TO FUNERAL DIRECTOR AND EMBALMER RN FOR CONTINUITY OF CARE. PATIENT IN STABLE CONDITION WITH 4L OXYGEN VIA NC.
--- NOTE | 2020-08-23 19:30 | NUR ---
RECEIVED REPORT FROM ANJUM GOLDBERG DAYSHIFT NURSE AT BEDSIDE FOR CONTINUITY OF CARE, PT IN STABLE CONDITION.
[2020-08-23 20:00] VITALS: BP 131/88
--- NOTE | 2020-08-23 20:00 | NUR ---
PT SITTING UP IN BED HOB UP 45%, SHE IS WATCHING TV, RR EVEN AND UNLABORED. PT IS ON 4 LITERS HUMIDIFIED AIR. SHE HAS 2 IV SITES LFA 22G AND LEFT HAND 20G. LEVAQUIN IS RUNNING VIA L HAND 20G AND IS ALMOST FINISHED. PT HAS NO S/S OF PAIN OR DISTRESS NOTED. V/S T 97.0 P 64 R 20 B/P 131/88 02 91%. ALL ORDERED PRECAUTIONS IN PLACE.
--- NOTE | 2020-08-23 21:00 | NUR ---
PT GIVEN ORDERED ELIQUIS AND VITAMIN C. EDUCATION REGARDING MEDICATION AND SIDE EFFECTS PROVIDED AT BEDSIDE, PT VERBALIZED UNDERSTANDING. ALL ORDERED PRECAUTIONS IN PLACE.
--- NOTE | 2020-08-23 22:00 | NUR ---
ROUNDS DONE, PT CONTINUES ON 4 LITERS VIA HUMIDIFIED 02. PT HAS NO S/S OF PAIN OR DISTRESS NOTED. IV SITES INTACT AND SALINE LOCKED. ALL ORDERED PRECAUTIONS IN PLACE.
--- NOTE | 2020-08-23 23:00 | NUR ---
PT IN BED CONTINUES ON 02 AT 4 LITERS VIA N/C. NO S/S OF PAIN OR DISTRESS NOTED. CALL LIN IN REACH AND ALL ORDERED PRECAUTIONS IN PLACE.
[2020-08-24] VITALS: BP 131/88
--- NOTE | 2020-08-24 00:30 | NUR ---
PT IN BED RESTING WITH EYES CLOSED BUT AROUSABLE TO NAME AND LIGHT TOUCH, V/S FOLLOWS: T 97.0 P 52 R 20 B/P 127/71 02 90%. ALL REQUESTED NEEDS ATTENDED BY STAFF AND ALL ORDERED PRECAUTIONS IN PLACE.
[2020-08-24] MEDS: HYDRAGUARD CREAM TP SCH ×2 (01:20→12:25)
--- NOTE | 2020-08-24 02:45 | NUR ---
ROUNDS DONE,PT WAS UP TO TOILET INDEPENDENTLY WITH STEADY GAIT TO TOILET AND BACK NO C/O VOICED. PT RR EVEN AND UNLABORED WITH 4 LITERS 02 VIA HUMIDIFIED AIR. ALL ORDERED PRECAUTIONS IN PLACE.
[2020-08-24 04:00] VITALS: BP 104/53
--- NOTE | 2020-08-24 04:00 | NUR ---
PT SITTING UP IN BED NO S/S OF PAIN OR DISTRESS NOTED. V/S FOLLOWS: T 97.4 P 56 R 20 B/P 104/53 02 91% WITH 4 LITERS VIA HI FLOW N/C. ALL ORDERED PRECAUTIONS IN PLACE.
[2020-08-24 05:36] LABS: BASOPHILS % (AUTO) 0.3 % (0.0-2.0); EOSINOPHILS % (AUTO) 0.1 % (0.0-4.0); HEMATOCRIT 37.7 % (36-48); HEMOGLOBIN 12.4 g/dL (12.0-16.0); LYMPHOCYTES # (AUTO) 1.4 K/uL (2.5-16.5); LYMPHOCYTES % (AUTO) 9.7 % (20.5-51.1); MEAN CORPUSCULAR HEMOGLOBIN 30 pg (27-31); MEAN CORPUSCULAR HGB CONC 33 g/dL (33-37); MEAN CORPUSCULAR VOLUME 89.4 fL (80-94); MONOCYTES # (AUTO) 1.2 K/uL (0.8-1.0); MONOCYTES % (AUTO) 7.8 % (1.7-9.3); NEUTROPHILS # (AUTO) 12.1 K/uL (1.8-7.7); NEUTROPHILS % (AUTO) 82.1 % (42.2-75.2); PLATELET COUNT (AUTO) 351 K/uL (140-450); RED BLOOD CELL COUNT(AUTO) 4.21 MIL/uL (4.20-5.40); RED CELL DISTRIBUTION WIDTH 13.1 % (11.6-13.7); WHITE BLOOD COUNT (AUTO) 14.7 K/uL (4.8-10.8)
[2020-08-24 06:24] LABS: MAGNESIUM 2.1 mg/dL (1.8-2.4); PHOSPHORUS 2.6 mg/dL (2.5-4.9)
[2020-08-24 06:27] LABS: ALBUMIN 2.5 g/dL (3.4-5.0); ANION GAP 13.6 (8-16); CARBON DIOXIDE 25.5 mmol/L (21-32); CREATININE 0.6 mg/dL (0.6-1.3); POTASSIUM 4.1 mmol/L (3.5-5.1); TOTAL BILIRUBIN 0.5 mg/dL (0.0-1.0)
--- NOTE | 2020-08-24 07:15 | NUR ---
RECEIVED ENDORSEMENT AT THIS TIME. PT IS STABLE SITTING IN BED, DENIES ANY DISTRESS.
[2020-08-24 08:00] VITALS: BP 128/69
[2020-08-24] MEDS: PANTOPRAZOLE 40 MG TABEC PO SCH (08:45)
[2020-08-24] MEDS: VITAMIN D 400 IU TAB PO SCH (08:45)
[2020-08-24] MEDS: ZINC SULF 220 MG CAP PO SCH (08:45)
--- NOTE | 2020-08-24 08:45 | NUR ---
SCHEDULED MEDICATION GIVEN TOLERATED WELL. PT IS AWAKE, ALERT, ORIENTED X 4 AMBULATES WITH STEADY GAIT. ASSISTED TO RESTROOM WITH MINIMAL INTERVENTION. PT ON 4L NC, LUNG SOUNDS DIMINISHED PT HAS DRY COUGH UPON PHYSICAL ACTIVITY. ABD IS SOFT AND NONTENDER WITH ACTIVE BS X 4. SKIN INTACT. PT HAS IV ACCESS X 2 LEFT FA AND LEFT HAND 20G. BOTH INTACT AND PATENT WITH NO REDNESS, SWELLING OR DISCOMFORT. ALL NEEDS MET. CALL LIGHT WITHIN REACH, SAFETY MEASURES IN PLACE.
[2020-08-24] MEDS: ASCORBIC ACID 500 MG TAB PO SCH (08:46)
[2020-08-24] MEDS: APIXABAN 2.5 MG TAB PO SCH (08:46)
--- NOTE | 2020-08-24 10:33 | NUR ---
PT IS IN BED WATCHING TV, DENIES ANY DISCOMFORT. SPO2 92% REMAINS ON 4L NC. PT REPORTS LBM EARLIER TODAY. DENIES DIFFICULTY.
[2020-08-24] MEDS: DEXAMETHASONE 10 MG/ML VIAL IVP SCH (10:59)
[2020-08-24 12:00] VITALS: BP 122/61
--- NOTE | 2020-08-24 12:26 | NUR ---
PT TOLERATED DECADRON IVP WITH NO ISSUES. PT DENIES ANY REDNESS TO PERINEAL AREA STATING, "NO I AM FINE I JUST WANT TO GO HOME." REFUSED ASSESSMENT PT EDUCATED. "NO I AM FINE." HYDROGUARD NOT GIVEN. DENIES ANY DISTRESS. ALL NEEDS MET.
[2020-08-24] MEDS ORDERED: DEC4 PO (12:34)
[2020-08-24] MEDS ORDERED: APIX2.5 PO (12:34)
--- NOTE | 2020-08-24 14:25 | NUR ---
PT SITTING UP ON BE SCHEDULED MEDICATION GIVEN TOLERATED WELL. ALL NEEDS MET.
[2020-08-24 14:41] VITALS: BP 122/61
[2020-08-24 16:00] VITALS: BP 125/62
[2020-08-24] MEDS: LEVOFLOXACIN 750 MG/D5W PREMIX 150 ML IV SCH (16:00)
--- NOTE | 2020-08-24 16:10 | NUR ---
PT DISCHARGED AT THIS TIME PICKED UP BY DAUGHTER AND SON IN [place]. PT DISCHARGED WITH INSTRUCTIONS AND O2 TANK AND CONCENTRATOR. PT EDUCATED ON HOW TO OPERATED O2 AND SYMPTOMS TO REPORT OR RETURN TO ER WITH INCREASED SOB. DISCHARGED WITH ALL BELONGINGS. Addendum: 08/24/20 at 1624 by Kinza Grimaldo RN PT REFUSED THE LAST DOSE OF LEVOFLOXACIN SAYING" NO IM READY TO GO." PT EDUCATED
== END 2020-08-24 16:10 | disposition home health service (06) | DRG 720 ==
LOC: MED 22:55 → MTU 08-15 04:35
PROVIDERS: ADMIT Internal Medicine; ATTEND Internal Medicine
PROC: XW033E5 Introduction of Remdesivir Anti-infective into Peripheral Vein, Percutaneous Approach, New Technology Group 5 (ICD-10-PCS; principal; 2020-08-15)
DX: A41.9 Sepsis, unspecified organism (principal); U07.1 COVID-19; J96.01 Acute respiratory failure with hypoxia; E44.0 Moderate protein-calorie malnutrition; D69.6 Thrombocytopenia, unspecified; E87.1 Hypo-osmolality and hyponatremia; J12.82 Pneumonia due to coronavirus disease 2019; R73.9 Hyperglycemia, unspecified; M17.10 Unilateral primary osteoarthritis, unspecified knee; D72.829 Elevated white blood cell count, unspecified; E66.9 Obesity, unspecified; Z88.0 Allergy status to penicillin; Z68.33 Body mass index [BMI] 33.0-33.9, adult
CPT/HCPCS: 36415; 71045; 80053; 81003; 83605; 83735; 83880; 84100; 84484; 85025; 85379; 85384; 85610; 85730; 86140; 87040; 87081; 87086; 96365; 96367; 96375; 97110; 97112; 97116; 97163-GP; 97530; 99291; J0456; J0696; J1100; J1956; J3475